=== PATIENT | female | born 1940 | race Two or more races ===

== ENCOUNTER 2017-09-26 23:31 | Inpatient (IN) | payer MEDICARE, MEDICAID ==
[~2017-09-26] VITALS: Ht 170.2 cm; Wt 62.6 kg
[~2017-09-26 23:31] MED LIST: ATOR10TA PO; DONE5TAB34 PO; FLUT16SP NS; GLIP10TA11 PO; LINA5TAB PO; LOSA50TA21 PO; LOVA20TA2 PO; METF10002 PO; METR500T PO; PANT40TA4 PO; PARO40TA PO; PIOG45TA PO
--- NOTE | 2017-09-26 23:35 | NUR ---
PT BIB RA TO ER BED 6, PT FAMILY PRESENT. DAUGHTER REPORTS PT HAS BEEN LETHARGIC AND NOT EATING MUCH OVER THE LAST FEW DAYS, ALSO STATES PT HAS BEEN CONFUSED. PT PLACED IN GOWN AND ON VS/SUPERVISOR LONG GOODS. VSS/RESP EVEN AND UNLABORED/NAD NOTED/SKIN WARM AND DRY.
[2017-09-27] VITALS (21 sets, daily range): BP systolic 118–173; BP diastolic 54–97
[2017-09-27] MEDS ORDERED: IV NS 0.9% 500 ML BAG IV ONE
--- NOTE | 2017-09-27 00:01 | NUR ---
20G IV TO L HAND USING ASEPTIC TECH, BLOOD CULTURES X 2 AND BLOOD SAMPLE GIVEN TO LAB AT BESIDE.
[2017-09-27 00:10] LABS: BASOPHILS # (AUTO) 0.2 /CMM (0.0-0.2); BASOPHILS % (AUTO) 0.9 % (0.0-2.0); EOSINOPHILS % (AUTO) 0.1 % (0.0-6.0); HEMATOCRIT 46 % (33-45); HEMOGLOBIN 15.3 g/dL (11.5-14.8); LYMPHOCYTES # (AUTO) 2.4 /CMM (0.8-4.8); LYMPHOCYTES % (AUTO) 9.6 % (20.0-44.0); MEAN CORPUSCULAR HEMOGLOBIN 31 PG (26.0-33.0); MEAN CORPUSCULAR HGB CONC 33 g/dl (31.0-36.0); MEAN CORPUSCULAR VOLUME 94 fL (82-100); MONOCYTES # (AUTO) 2.4 /CMM (0.1-1.30); MONOCYTES % (AUTO) 9.4 % (2.0-12.0); NEUTROPHILS # (AUTO) 20.1 /CMM (1.8-8.9); PLATELET COUNT (AUTO) 398 /CMM (150-450); RDW COEFFICIENT OF VARIATION 12.5 (11.5-15.0); RED BLOOD CELL COUNT(AUTO) 4.89 MIL/uL (4.0-5.2); WHITE BLOOD COUNT (AUTO) 25.1 K/uL (4.3-11.0)
--- NOTE | 2017-09-27 00:15 | NUR ---
URINE COLLECTED VIA IN AND OUT CATH USING TIN ROOFER PER MD ORDER. URINE COLLECTED AND SENT TO LAB.
[2017-09-27 00:26] LABS: INR 0.9 (0.87-1.13); PROTHROMBIN TIME 9.4 SECS (9.5-12.7)
--- NOTE | 2017-09-27 00:27 | NUR ---
PT TO CT.
[2017-09-27] MEDS ORDERED: INSULIN REGULAR, HUMAN 100 UNIT/ML 10 ML VIAL ONE ×2 (00:28→00:56)
[2017-09-27] MEDS ORDERED: INSULIN REGULAR, HUMAN 100 UNIT/ML 10 ML VIAL SQ ONE (00:30)
[2017-09-27 00:31] LABS: TROPONIN I < 0.017 ng/mL (0.00-0.056)
[2017-09-27 00:37] LABS: ALANINE AMINOTRANSFERASE 18 U/L (12-78); ALBUMIN 3.3 g/dL (3.4-5.0); ALKALINE PHOSPHATASE 116 U/L (46-116); ASPARTATE AMINOTRANSFERASE 23 U/L (15-37); B-TYPE NATRIURETIC PEPTIDE 438 PG/ML (0-125); BILIRUBIN,DIRECT 0.1 mg/dL (0.0-0.2); BILIRUBIN,TOTAL 0.7 mg/dL (0.2-1.0); CALCIUM, SERUM 10.5 mg/dL (8.5-10.1); CARBON DIOXIDE 16 mmol/L (21-32); CHLORIDE 95 mmol/L (98-107); CREATININE 1.3 mg/dL (0.6-1.3); POTASSIUM 4.8 mmol/L (3.5-5.1); SODIUM SERUM 131 mmol/L (136-145); TOTAL PROTEIN, SERUM 8.6 g/dL (6.4-8.2); UREA NITROGEN, BLOOD 28 mg/dL (7-18)
[2017-09-27 00:39] LABS: GLUCOSE 464 mg/dL (74-106)
--- NOTE | 2017-09-27 00:42 | NUR ---
Dona smith in EDM - 09/27/17 at 0050 by KAREN 20G IV TO L HAND USING ASEPTIC TECH, BLOOD CULTURES X 2 AND BLOOD SAMPLE GIVEN TO LAB AT BESIDE.
--- NOTE | 2017-09-27 00:50 | NUR ---
PT BACK FROM CT. NAD NOTED.
[2017-09-27 00:51] LABS: APPEARANCE,URINE SL CLOUDY (CLEAR); BILIRUBIN,URINE NEGATIVE (NEGATIVE); BLOOD, URINE 2+ Ery/uL (NEGATIVE); COLOR,URINE YELLOW (YELLOW); KETONES,URINE 3+ (NEGATIVE); LEUKOCYTE ESTERASE ,URINE 1+ (NEGATIVE); NITRITE, URINE POSITIVE (NEGATIVE); PROTEIN,URINE 1+ mg/dl (NEGATIVE); UGLUCOSE 3+ mg/dL (NEGATIVE); UROBILINOGEN,URINE 0.2 EU/dL (0.2)
[2017-09-27] MEDS ORDERED: INSULIN REGULAR, HUMAN 100 UNIT in IV NS 0.9% 99 ML IV PRN ×2 (01:00)
--- NOTE | 2017-09-27 01:06 | NUR ---
WITNESSED AND VERIFIED IV INSULIN DRIP @ 5UNITS/HR PER DR. KING ORDERS WITH EMORY CAUSEY.
[2017-09-27 01:13] LABS: BACTERIA,URINE 3+ /HPF (None Seen); SQUAMOUS EPITHELIAL CELL,UR Moderate /HPF (None Seen); WBC,URINE 81-100 /HPF (0-3)
[2017-09-27] MEDS ORDERED: ATOR20TA PO (01:22)
[2017-09-27] MEDS ORDERED: MIRT15TA7 PO (01:22)
[2017-09-27] MEDS ORDERED: CEFTRIAXONE 1GM BAG (ER ONLY) 1 GM/50 ML PIGGYBACK IV ONE (01:30)
--- NOTE | 2017-09-27 01:30 | NUR ---
Dona smith in ED - 09/27/17 at [address] KING SPEAKING TO PT/ FAMILY REGARDING RESULTS/ POC.
--- NOTE | 2017-09-27 01:30 | NUR ---
DR. KING SPEAKING TO PT/ FAMILY REGARDING RESULTS/ POC.
--- NOTE | 2017-09-27 01:37 | NUR ---
DR. ZHANG AT BEDSIDE SPEAKING WITH THE FAMILY.
[2017-09-27] MEDS ORDERED: CEFTRIAXONE 1GM BAG (ER ONLY) 50 ML IV ONE (01:40)
--- NOTE | 2017-09-27 01:40 | NUR ---
DR KING TALKING TO MD LATHAM
--- NOTE | 2017-09-27 01:47 | NUR ---
PT ADMIT TO ICU BED 259, REPORT GIVEN TO EMORY HERRERA.
--- NOTE | 2017-09-27 02:03 | NUR ---
PT TRANS TO ICU BED 259 PER ACLS PROTOCOL.
[2017-09-27] MEDS: BLOOD SUGAR DIAGNOSTIC 1 EACH STRIP IN SCH ×12 (02:11→22:16)
--- NOTE | 2017-09-27 02:30 | NUR ---
DISTRICT MANAGER IN TRAINING: RECEIVED PT FROM ER, NEW ADMITTED UNDER DR LATHAM, DX DKA, UTI, PT IS AAO X2-3, UNDERSTANDS LITTLE NIGERIAN. ON INSULIN DRIP RUNNING AT 5 UNITS/HR, FINGERSTICK BLOOD SUGAR 397 TITRATED DOWN TO 4 UNITS PER PROTOCOL. ALL ADMISSION ASSESSMENT DONE. SKIN IS INTACT CHECKED WITH REPLENISHMENT ASSOCIATE/ED. SR ON MONITOR. ON ROOM AIR SATURATING 96%, NO DISTRESS. LAC #20, LH #[address] LATHAM AT BEDSIDE, ENTERING ADMISSION ORDERS. WILL FOLLOW MD ORDERS.....
[2017-09-27] MEDS ORDERED: HYDROCODONE/APAP 5/325MG 1 EACH TABLET PO PRN (03:00)
[2017-09-27] MEDS ORDERED: ONDANSETRON HCL/PF 4 MG/2 ML VIAL IVP PRN (03:00)
[2017-09-27] MEDS ORDERED: BLOOD SUGAR DIAGNOSTIC 1 EACH STRIP IN SCH (03:00)
[2017-09-27] MEDS ORDERED: ACETAMINOPHEN 325 MG TABLET PO PRN (03:00)
[2017-09-27] MEDS ORDERED: IV NS 0.9% 1,000 ML BAG IV ONE (03:00)
[2017-09-27] MEDS ORDERED: Z GUARD REMEDY 2 OZ OINT TP PRN (03:00)
[2017-09-27] MEDS ORDERED: ZOLPIDEM TARTRATE 5 MG TABLET PO PRN (03:00)
[2017-09-27] MEDS ORDERED: MAG HYDROX/AL HYDROX/SIMETH 30 ML UDC PO PRN (03:00)
[2017-09-27] MEDS ORDERED: IV D5/0.45 NACL 1,000 ML IV SCH (03:00)
[2017-09-27] MEDS ORDERED: hydrALAZINE HCL IV 20 MG VIAL IV PRN (03:00)
[2017-09-27] MEDS ORDERED: MAGNESIUM HYDROXIDE 30 ML UDC PO PRN (03:00)
[2017-09-27] MEDS ORDERED: DEXTROSE 50%-WATER 50 ML DISP.SYRIN IV PRN ×2 (03:00→10:30)
[2017-09-27] MEDS ORDERED: IV D5/0.45 NACL 1,000 ML IV PRN (03:03)
--- NOTE | 2017-09-27 03:19 | NUR ---
CLIENT EVALUATOR: NS BOLUS ONGOING, ONCE ITS FINISH THEN WILL START NS AT 150 ML/HR PER MD ORDERS..
[2017-09-27] MEDS ORDERED: IV NS 0.9% 1,000 ML IV PRN (04:30)
[2017-09-27 05:42] LABS: CALCIUM, SERUM 9.2 mg/dL (8.5-10.1); CARBON DIOXIDE 22 mmol/L (21-32); CHLORIDE 105 mmol/L (98-107); CREATININE 1.1 mg/dL (0.6-1.3); GLUCOSE 266 mg/dL (74-106); PHOSPHORUS 1.9 mg/dL (2.5-4.9); POTASSIUM 3.1 mmol/L (3.5-5.1); SODIUM SERUM 137 mmol/L (136-145); UREA NITROGEN, BLOOD 25 mg/dL (7-18)
[2017-09-27 05:43] LABS: CHOLESTEROL 197 mg/dL (<200); HDL CHOLESTEROL 27 mg/dL (40-60); TRIGLYCERIDES 167 mg/dL (30-150)
[2017-09-27 05:44] LABS: LDL 131 mg/dL (0-99)
--- NOTE | 2017-09-27 07:00 | NUR ---
FRIT COATER- INITIAL NOTE RECEIVED PT A/O X3. ON ROOM AIR, NO SOB OR DISTRESS NOTED. BEDSIDE MONITOR REVEALS SINUS RHYTHM. LAC 20G RUNNING INSULIN GTT AT 2 UNITS/HR AND LEFT THUMB 20G RUNNING NS @ 150 ML/HR. PT REMAINS NPO. WILL CONTINUE TO MONITOR.
--- NOTE | 2017-09-27 07:08 | NUR ---
DIRECTOR CAREER SERVICES: REPORT GIVEN TO NATALI/EMORY, MADE AWARE ALL ORDERS. INSULIN DRIP TITRATED DOWN TO 1 UNITS/HR PER PROTOCOL, BS 238.
[2017-09-27] MEDS ORDERED: IV NS 0.9% 1,000 ML BAG IV SCH (09:00)
--- NOTE | 2017-09-27 09:45 | NUR ---
CONTINUOUS WELD PIPE MILL SUPERVISOR- DR. LOPEZ AT BEDSIDE. UPDATED PT ON PT'S CONDITION. NEW ORDERS OBTAINED: 1) STOP INSULIN GTT, 2) D/C CURRENT IVF AND START PT ON D5 NS @ 100 ML/HR, 3) PT CAN START EATING, DIABETIC DIET, 4) START AGGRESSIVE SLIDING SCALE ACHS, 5) LANTUS 20 UNITS SQ EVERY NIGHT AND 3) OK TO DOWNGRADE PT TO TELE. ALL ORDERS PLACED. WILL CONTINUE TO MONITOR.
[2017-09-27] MEDS: POTASSIUM CL. PREMIX PERIPHER. 50 ML IV SCH ×4 (10:25→13:31)
[2017-09-27] MEDS: IV D5/ 0.9% NACL 1,000 ML IV PRN (10:25)
[2017-09-27] MEDS ORDERED: K PHOS NEUTRAL 250 MG TABLET PO ONE (11:30)
[2017-09-27] MEDS: INSULIN REGULAR, HUMAN 100 UNIT/ML 3 ML VIAL SQ PRN ×3 (12:05→22:50)
--- NOTE | 2017-09-27 16:00 | NUR ---
UNDERGROUND MINE SUPERINTENDENT- COMPLETE BED BATH GIVEN TO PT. ALL LINENS CHANGED. PT TOLERATED WELL. WILL CONTINUE TO MONITOR.
--- NOTE | 2017-09-27 17:00 | NUR ---
JAVA FRONT END WEB DEVELOPER- REPORT GIVEN TO MARY ANN CAT IN [facility]. 1725- PT TRANSFERRED TO ROOM TELE ROOM 327-2. DAUGHTER AT BEDSIDE. PT HAD NO BELONGINGS.
--- NOTE | 2017-09-27 17:25 | NUR ---
RN NOTES: RECEIVED PATIENT FROM ICU. REPORT GIVEN BY NATALI. PATIENT STABLE. VITAL SIGNS WNL. NONLABORED BREATHING ON ROOM AIR. IV SITE ON LEFT AC PATENT AND INTACT. PATIENT AO X3 WITH PERIODS OF CONFUSION. PATIENT'S SKIN DRY AND INTACT. IV HYDRATION RESUMED. DAUGHTER BOWEN AT BED SIDE. BED IN LOWEST LOCKED POSITION.CALL LIGHT WITHIN REACH. BED ALARM ON. WILL CONTINUE TO MONITOR
--- NOTE | 2017-09-27 19:00 | NUR ---
RN CLOSING NOTES: PATIENT STABLE. NONLABORED BREATHING ON ROOM AIR. IV SITE ON LEFT AC PATENT AND INTACT. PATIENT AO X3 WITH PERIODS OF CONFUSION. PATIENT ATE SOME OF HER DINNER: 1 CUP OF PUDDING WELL SEVERAL PIECES OF MEAT. PATIENT KEPT CLEAN AND DRY. PATIENT ON TELEMETRY MONITORING. EARLIER, RHYTHM WAS SINUS WITH OCCASIONAL FIRST DEGREE HEART BLOCK. NOW NOTED TO BE SINUS RHYTHM WITH 91 HR. PATIENT ENCOURAGED TO USE CALL LIGHT.CALL LIGHT WITHIN REACH. BED ALARM ON. BED IN LOWEST LOCKED POSITION. WILL ENDORSE TO NEXT SHIFT
--- NOTE | 2017-09-27 20:00 | NUR ---
RN NOTES PATIENT IN BED, ALERT AND ORIENTED X1, SPEAKS LITTLE SERBIAN, WITH CONFUSION, 98%, NOT IN APPARENT PAIN, LUNG SOUNDS ARE CLEAR, ABDOMEN SOFT AND NON-TENDER, ACTIVE BOWEL SOUNDS, LEFT AC #20 PERIPHERAL LINE IS PATENT AND INFUSING WELL, ASSISTED TO TOILET, UNSTEADY GAIT, FALL RISK, BED ALARM TURNED ON. KEPT SAFE AND COMFORTABLE, CALL LIGHT WITHIN REACH.
[2017-09-27] MEDS: SIMVASTATIN 20 MG TABLET PO SCH (22:16)
[2017-09-27] MEDS: INSULIN DETEMIR 100 UNIT/ML CARTRIDGE SQ SCH (22:23)
[2017-09-28] VITALS: BP 147/76
[2017-09-28] MEDS: IV D5/ 0.9% NACL 1,000 ML IV PRN (00:25)
[2017-09-28] MEDS: CEFTRIAXONE 1 G in IV D5W 50 ML IV SCH (01:16)
[2017-09-28 04:00] VITALS: BP 146/72
[2017-09-28] MEDS: BLOOD SUGAR DIAGNOSTIC 1 EACH STRIP IN SCH ×4 (06:29→22:53)
[2017-09-28] MEDS: INSULIN REGULAR, HUMAN 100 UNIT/ML 3 ML VIAL SQ PRN ×3 (06:36→16:52)
--- NOTE | 2017-09-28 06:50 | NUR ---
RN NOTES PATIENT IS RESTING COMFORTABLY, AROUSEABLE BY TOUCH AND VOICE, NO SOB, NO RESPIRATORY DISTRESS, NO COMPLAIN OF PAIN, WITH EPISODE OF CONFUSION, LEFT AC PERIPHERAL LINE IS PATENT AND INFUSING WELL. ASSISTED TO BATHROOM, UNSTEADY GAIT, NEEDS ATTENDED, CALL LIGHT WITHIN REACH.
[2017-09-28 07:00] VITALS: BP 147/76
[2017-09-28 07:33] LABS: BASOPHILS # (AUTO) 0.1 /CMM (0.0-0.2); BASOPHILS % (AUTO) 0.5 % (0.0-2.0); EOSINOPHILS # (AUTO) 0.1 /CMM (0.0-0.7); EOSINOPHILS % (AUTO) 0.5 % (0.0-6.0); HEMATOCRIT 38 % (33-45); HEMOGLOBIN 12.8 g/dL (11.5-14.8); LYMPHOCYTES # (AUTO) 2.7 /CMM (0.8-4.8); LYMPHOCYTES % (AUTO) 16.4 % (20.0-44.0); MEAN CORPUSCULAR HEMOGLOBIN 32 PG (26.0-33.0); MEAN CORPUSCULAR HGB CONC 34 g/dl (31.0-36.0); MEAN CORPUSCULAR VOLUME 93 fL (82-100); MONOCYTES % (AUTO) 5.9 % (2.0-12.0); NEUTROPHILS # (AUTO) 12.8 /CMM (1.8-8.9); NEUTROPHILS % (AUTO) 76.7 % (43.0-81.0); PLATELET COUNT (AUTO) 309 /CMM (150-450); RDW COEFFICIENT OF VARIATION 12.6 (11.5-15.0); RED BLOOD CELL COUNT(AUTO) 4.05 MIL/uL (4.0-5.2); WHITE BLOOD COUNT (AUTO) 16.7 K/uL (4.3-11.0)
--- NOTE | 2017-09-28 07:41 | NUR ---
RN OPEN NOTES RECEIVED REPORT FROM SLOT ROUTER NURSE. WILL CONTINUE TO ASSESS AND MONITOR PATIENT THROUGH OUT MY SHIFT
[2017-09-28 07:48] LABS: CALCIUM, SERUM 8.6 mg/dL (8.5-10.1); CARBON DIOXIDE 21 mmol/L (21-32); CHLORIDE 108 mmol/L (98-107); CREATININE 0.8 mg/dL (0.6-1.3); GLUCOSE 186 mg/dL (74-106); MAGNESIUM 1.9 mg/dL (1.8-2.4); PHOSPHORUS 2.1 mg/dL (2.5-4.9); SODIUM SERUM 140 mmol/L (136-145); UREA NITROGEN, BLOOD 14 mg/dL (7-18)
[2017-09-28 07:59] LABS: POTASSIUM 2.7 mmol/L (3.5-5.1)
--- NOTE | 2017-09-28 08:00 | NUR ---
CRITICAL VALUE REPORTED BY LAB
--- NOTE | 2017-09-28 08:09 | NUR ---
DR YAMEL NJ REGARDING CRITICAL LAB VALUE OF POTASSIUM 2.7
--- NOTE | 2017-09-28 08:20 | NUR ---
SHANIQUA NJ REGARDING CRITICAL LAB VALUE POTASSIUM LEVEL OF 2.7
[2017-09-28] MEDS ORDERED: POTASSIUM CHLORIDE 20 MEQ TAB.PRT.SR PO ONE (09:00)
--- NOTE | 2017-09-28 12:40 | NUR ---
IV INFILTRATE. REMOVED IV. APPLIED ICE, ELEVATED ARM. WILL ATTEMPT TO START A NEW IV SITE
--- NOTE | 2017-09-28 14:00 | NUR ---
NEW IV STARTED. 22 G ON THE RIGHT FOREARM
--- NOTE | 2017-09-28 18:15 | NUR ---
IV INFILTRATE. IV REMOVED.
--- NOTE | 2017-09-28 18:30 | NUR ---
CALLED ICU TO START AND IV. AN RN WILL COME WHEN AVAILABLE
--- NOTE | 2017-09-28 18:54 | NUR ---
RN CLOSING NOTES PATIENT IS ALERT AND ORIENTED TO NAME, PLACE. PATIENT IS IN BED. ALL NURSING CARE ANTICIPATED AND PROVIDED. NO SIGNS AND SYMPTOMS OF DISTRESS. DENIED PAIN. BREATHING IS EVEN AND UNLABORED. NO IV SITE; ICU WILL ATTEMPT TO START AND IV WHEN AVAILABLE. BED IN LOW POSITION, LOCKED AND TWO SIDE RAILS ARE UP. CALL LIGHT WITHIN REACH. WILL ENDORSE TO STEEL FITTER NURSE.
--- NOTE | 2017-09-28 19:30 | NUR ---
PATIENT'S DAUGHTER AT BEDSIDE REPORTED THAT PATIENT HAS ALERGY REACTION TO IODINE AND ANCEF. ALLERGY NOTED AND DOCUMENTED
[2017-09-28 20:04] VITALS: BP 133/73
[2017-09-28] MEDS: INSULIN DETEMIR 100 UNIT/ML CARTRIDGE SQ SCH (22:56)
[2017-09-28] MEDS: SIMVASTATIN 20 MG TABLET PO SCH (22:57)
[2017-09-29] MEDS: CEFTRIAXONE 1 G in IV D5W 50 ML IV SCH (00:14)
[2017-09-29 06:49] LABS: BASOPHILS % (AUTO) 0.2 % (0.0-2.0); EOSINOPHILS # (AUTO) 0.1 /CMM (0.0-0.7); EOSINOPHILS % (AUTO) 0.8 % (0.0-6.0); HEMATOCRIT 41 % (33-45); LYMPHOCYTES # (AUTO) 3.2 /CMM (0.8-4.8); MEAN CORPUSCULAR HEMOGLOBIN 32 PG (26.0-33.0); MEAN CORPUSCULAR HGB CONC 35 g/dl (31.0-36.0); MEAN CORPUSCULAR VOLUME 93 fL (82-100); MONOCYTES # (AUTO) 1.1 /CMM (0.1-1.30); MONOCYTES % (AUTO) 7.3 % (2.0-12.0); NEUTROPHILS # (AUTO) 10.7 /CMM (1.8-8.9); NEUTROPHILS % (AUTO) 70.7 % (43.0-81.0); PLATELET COUNT (AUTO) 344 /CMM (150-450); RDW COEFFICIENT OF VARIATION 12.4 (11.5-15.0); RED BLOOD CELL COUNT(AUTO) 4.38 MIL/uL (4.0-5.2); WHITE BLOOD COUNT (AUTO) 15.2 K/uL (4.3-11.0)
--- NOTE | 2017-09-29 07:20 | NUR ---
MS RN initial notes Received pt in bed, asleep, on room air, no SOB noted, no apparent distress noted. On IV D5 NS at 100ml/hr, intact, patent. Kept clean and comfortable, call light within reach. Will continue to monitor accordingly.
[2017-09-29 07:22] LABS: CALCIUM, SERUM 8.8 mg/dL (8.5-10.1); CARBON DIOXIDE 23 mmol/L (21-32); CHLORIDE 106 mmol/L (98-107); CREATININE 0.8 mg/dL (0.6-1.3); GLUCOSE 138 mg/dL (74-106); MAGNESIUM 1.8 mg/dL (1.8-2.4); PHOSPHORUS 2.1 mg/dL (2.5-4.9); SODIUM SERUM 140 mmol/L (136-145); UREA NITROGEN, BLOOD 8 mg/dL (7-18)
[2017-09-29 07:47] LABS: POTASSIUM 2.8 mmol/L (3.5-5.1)
[2017-09-29 08:00] VITALS: BP 128/61
[2017-09-29] MEDS: BLOOD SUGAR DIAGNOSTIC 1 EACH STRIP IN SCH ×4 (08:17→22:03)
[2017-09-29] MEDS: INSULIN REGULAR, HUMAN 100 UNIT/ML 3 ML VIAL SQ PRN ×3 (08:17→17:07)
--- NOTE | 2017-09-29 08:17 | NUR ---
ms rn notes blood sugar checked 127 no coverage given. will continue to monitor accordingly.
[2017-09-29] MEDS ORDERED: POTASSIUM CHLORIDE 20 MEQ TAB.PRT.SR PO ONE (10:00)
[2017-09-29] MEDS: PAROXETINE HCL 20 MG TABLET PO SCH (11:27)
[2017-09-29] MEDS: MIRTAZAPINE 15 MG TABLET PO SCH ×2 (11:28→16:48)
[2017-09-29] MEDS ORDERED: K PHOS NEUTRAL 250 MG TABLET PO ONE (15:30)
[2017-09-29 16:00] VITALS: BP_SYST 140; BP_SYST 155; BP_DIAS 78; BP_DIAS 95
--- NOTE | 2017-09-29 19:23 | NUR ---
ms rn closing notes All needs provided, attended, and anticipated. kept patient clean and comfortable in bed, call light with in reach, endorsed to next shift RN to continue care.
[2017-09-29 20:00] VITALS: BP 158/94
--- NOTE | 2017-09-29 20:00 | NUR ---
MS/RN RECEIVE PATIENT APPEAR SLEEPING, AROUSABLE, APPEAR COMFORTABLE, BREATHING EVEN AND UNLABORED, CALL LIGHT IN REACH. WILL MONITOR.
[2017-09-29] MEDS: *INSULIN REGULAR(HUMULIN R)HUM 100 UNIT/ML VIAL SQ PRN (21:56)
[2017-09-29] MEDS: INSULIN DETEMIR 100 UNIT/ML CARTRIDGE SQ SCH (21:57)
--- NOTE | 2017-09-29 22:00 | NUR ---
MS/RN ACCU CHECK BLOOD SUGAR= 131, INSULIN GIVEN PER SLIDING SCALE, LANTUS 20 UNITS SC WAS GIVEN. SNACK GIVEN. WILL MONITOR.
[2017-09-29] MEDS: SIMVASTATIN 20 MG TABLET PO SCH (22:02)
--- NOTE | 2017-09-29 23:28 | NUR ---
MS/RN PATIENT IS SLEEPING AT THIS TIME, AROUSABLE, APPEAR COMFORTABLE, NO DISTRESS NOTED, CALL LIGHT IN REACH. WILL CONTINUE TO MONITOR.
[2017-09-30] MEDS: CEFTRIAXONE 1 G in IV D5W 50 ML IV SCH (01:33)
[2017-09-30] MEDS: INSULIN REGULAR, HUMAN 100 UNIT/ML 3 ML VIAL SQ PRN ×3 (06:28→17:09)
[2017-09-30] MEDS: BLOOD SUGAR DIAGNOSTIC 1 EACH STRIP IN SCH ×4 (06:33→21:46)
--- NOTE | 2017-09-30 06:38 | NUR ---
MS/RN PATIENT AWAKE, ALERT, ORIENTED, COMFORTABLE, ACCU CHECK BLOOD SUGAR = 186, COVERED WITH INSULIN PER SLIDING SCALE, ALL NEEDS ATTENDED AT THIS TIME. WILL CONTINUE TO MONITOR.
--- NOTE | 2017-09-30 07:10 | NUR ---
MS RN Initial notes Received pt awake, verbally responsive, on room air, no SOB noted,no apparent distress noted.Will continue to monitor accordingly. Kept clean and comfortable, call light in reach
[2017-09-30 07:17] LABS: BASOPHILS # (AUTO) 0.1 /CMM (0.0-0.2); EOSINOPHILS # (AUTO) 0.1 /CMM (0.0-0.7); EOSINOPHILS % (AUTO) 0.9 % (0.0-6.0); HEMATOCRIT 42 % (33-45); HEMOGLOBIN 14.3 g/dL (11.5-14.8); MEAN CORPUSCULAR HEMOGLOBIN 32 PG (26.0-33.0); MEAN CORPUSCULAR HGB CONC 34 g/dl (31.0-36.0); MEAN CORPUSCULAR VOLUME 93 fL (82-100); MONOCYTES % (AUTO) 7.7 % (2.0-12.0); NEUTROPHILS # (AUTO) 8.3 /CMM (1.8-8.9); NEUTROPHILS % (AUTO) 66.4 % (43.0-81.0); PLATELET COUNT (AUTO) 353 /CMM (150-450); RDW COEFFICIENT OF VARIATION 12.2 (11.5-15.0); RED BLOOD CELL COUNT(AUTO) 4.49 MIL/uL (4.0-5.2); WHITE BLOOD COUNT (AUTO) 12.5 K/uL (4.3-11.0)
[2017-09-30 07:25] LABS: CALCIUM, SERUM 9.3 mg/dL (8.5-10.1); CARBON DIOXIDE 26 mmol/L (21-32); CHLORIDE 106 mmol/L (98-107); CREATININE 0.7 mg/dL (0.6-1.3); GLUCOSE 188 mg/dL (74-106); MAGNESIUM 1.9 mg/dL (1.8-2.4); PHOSPHORUS 3.4 mg/dL (2.5-4.9); POTASSIUM 3.2 mmol/L (3.5-5.1); SODIUM SERUM 141 mmol/L (136-145); UREA NITROGEN, BLOOD 9 mg/dL (7-18)
[2017-09-30 08:00] VITALS: BP 145/65
[2017-09-30] MEDS: MIRTAZAPINE 15 MG TABLET PO SCH ×2 (08:23→16:57)
[2017-09-30] MEDS: PAROXETINE HCL 20 MG TABLET PO SCH (08:24)
[2017-09-30] MEDS: PIOGLITAZONE HCL 15 MG TABLET PO SCH (08:27)
[2017-09-30] MEDS ORDERED: Medication Not On Formulary EA (Atorvastatin Calcium (Lipitor) 1 TAB) PO SCH (09:00)
[2017-09-30] MEDS: LINAGLIPTIN 5 MG TABLET PO SCH (10:40)
[2017-09-30] MEDS: ATORVASTATIN 10 MG TABLET PO SCH (10:40)
[2017-09-30] MEDS: POTASSIUM CHLORIDE 20 MEQ TAB.PRT.SR PO SCH ×2 (13:30→17:11)
[2017-09-30 16:00] VITALS: BP 137/67
--- NOTE | 2017-09-30 19:14 | NUR ---
ms rn closing notes All needs provided, attended, and anticipated. Kept patient clean and comfortable in bed, call light with in patient reach, endorsed to next shift RN to continue care.
--- NOTE | 2017-09-30 19:30 | NUR ---
MS RN NOTE RECEIVED PATIENT FROM DAY SHIFT, PATIENT IS ALERT AND ORIENTEDX1, NO S/S OF RESPIRATORY DISTRESS OR PAIN AT THIS TIME, RESTING IN BED COMFORTABLY. NO IV SITE NOTED WILL TRY TO INSERT THE NEW ONE. SRX2, BED IN LOW POSITION, CALL LIGHT WITHIN REACH, WILL CONTINUE TO MONITOR PATIENT.
[2017-09-30 20:00] VITALS: BP 136/73
[2017-09-30] MEDS: SIMVASTATIN 20 MG TABLET PO SCH (21:45)
[2017-09-30] MEDS: INSULIN DETEMIR 100 UNIT/ML CARTRIDGE SQ SCH (21:48)
[2017-09-30] MEDS: *INSULIN REGULAR(HUMULIN R)HUM 100 UNIT/ML VIAL SQ PRN (21:49)
[2017-10-01] MEDS: CEFTRIAXONE 1 G in IV D5W 50 ML IV SCH (00:36)
[2017-10-01] MEDS: INSULIN REGULAR, HUMAN 100 UNIT/ML 3 ML VIAL SQ PRN ×3 (06:11→18:32)
[2017-10-01] MEDS: BLOOD SUGAR DIAGNOSTIC 1 EACH STRIP IN SCH ×4 (06:11→21:20)
--- NOTE | 2017-10-01 06:48 | NUR ---
MS RN NOTE PATIENT IS RESTING IN BED COMFORTABLY, NO ACUTE EVENT NOTED THROUGHOUT THE SHIFT. IV ON RIGHT WRIST IS PATENT AND INTACT, HL ONLY. NO S/S OF RESPIRATORY DISTRESS AND NO FACIAL GRIMACE NOTED. WILL ENDORSE TO DAY SHIFT NURSE FOR JOSE.
--- NOTE | 2017-10-01 07:40 | NUR ---
MS RN INITIAL NOTES RECEIVED PT IN BED, ASLEEP, ON ROOM AIR, NO SOB NOTED.NO S/SX OF PAIN OR DISCOMFORT NOTED.IV SITE RT WRIST INTACT, PATENT. KEPT CLEAN AND COMFORTABLE.CALL LIGHT WITHIN REACH.WILL CONTINUE TO MONITOR ACCORDINGLY
[2017-10-01 07:44] LABS: CALCIUM, SERUM 8.9 mg/dL (8.5-10.1); CARBON DIOXIDE 25 mmol/L (21-32); CHLORIDE 106 mmol/L (98-107); CREATININE 0.8 mg/dL (0.6-1.3); GLUCOSE 150 mg/dL (74-106); POTASSIUM 3.6 mmol/L (3.5-5.1); SODIUM SERUM 141 mmol/L (136-145); UREA NITROGEN, BLOOD 13 mg/dL (7-18)
[2017-10-01 08:00] VITALS: BP 132/72
[2017-10-01] MEDS: LINAGLIPTIN 5 MG TABLET PO SCH (08:37)
[2017-10-01] MEDS: PAROXETINE HCL 20 MG TABLET PO SCH (08:37)
[2017-10-01] MEDS: ATORVASTATIN 10 MG TABLET PO SCH (08:37)
[2017-10-01] MEDS: MIRTAZAPINE 15 MG TABLET PO SCH ×2 (08:37→16:43)
[2017-10-01] MEDS: PIOGLITAZONE HCL 15 MG TABLET PO SCH (08:38)
[2017-10-01 16:00] VITALS: BP 127/67
--- NOTE | 2017-10-01 18:26 | NUR ---
MS RN Closing notes Pt in bed, alert,awake,verbally responsive. On room air, no SOB noted,no apparent distress noted.Kept clean and comfortable.Will monitor accordingly
--- NOTE | 2017-10-01 19:30 | NUR ---
MS RAINER INITIAL NOTES RECEIVED REPORT FROM AM NURSE AND CHECKED THE PATIENT, SEEN PT JUST CAME OUT FROM THE BATHROOM , DENIES ANY PAIN OR ANY DISCOMFORT RE-ORIENTED WHERE SHE AT , SPEAK CROATIAN BUT UNDERSTOOD SOME FRISIAN. KEPT HER WARM AND COMFORTABLE AT ALL TIMES. PLACE CALL LIGHT AT REACH. WILL CONTINUE TO MONITOR.
[2017-10-01 20:00] VITALS: BP 128/76
[2017-10-01 20:29] VITALS: BP 128/76
[2017-10-01] MEDS: INSULIN DETEMIR 100 UNIT/ML CARTRIDGE SQ SCH (21:21)
[2017-10-01] MEDS: SIMVASTATIN 20 MG TABLET PO SCH (21:21)
[2017-10-01] MEDS: *INSULIN REGULAR(HUMULIN R)HUM 100 UNIT/ML VIAL SQ PRN (21:23)
--- NOTE | 2017-10-01 21:34 | NUR ---
MS RAINER NOTES BLOOD SUGAR 187, 20 UNITS OF LEVEMIR GIVEN WELL 3 UNITS OF INSULIN. SNACKS ALSO SERVED. NO SIGNS OF HYPER GLYCEMIA NOTED. KEPT HER WARM AND COMFORTABLE AT ALL TIMES. WILL CONTINUE TO MONITOR. PLACE CALL LIGHT AT REACH.
[2017-10-02] MEDS: CEFTRIAXONE 1 G in IV D5W 50 ML IV SCH (01:11)
[2017-10-02] MEDS: BLOOD SUGAR DIAGNOSTIC 1 EACH STRIP IN SCH ×4 (06:06→21:36)
[2017-10-02] MEDS: INSULIN REGULAR, HUMAN 100 UNIT/ML 3 ML VIAL SQ PRN ×3 (06:09→16:50)
--- NOTE | 2017-10-02 07:00 | NUR ---
MS SALVAGE WINDER CLOSING NOTES' CHECKED PT SLEEPING COMFORTABLY IN BED BUT AROUSES TO TOUCH, BLOOD SUGAR CHECKED DONE 213, 8 UNITS OF INSULIN GIVEN ORDERED. SLEPT WELL NO SIGNS OF ANY ACUTE DISTRESS NOTED. STABLE STEFAN THE NIGHT . MORNING CARE ALSO DONE AND ALL NEEDS MET. HEPLOCK STILL ON HER RIGHT THUMB.PATENT AND INTACT. KEPT HER WARM AND COMFORTABLE AT ALL TIMES. BED ALARM SET FOR SAFETY. PLACE CALL LIGHT AT REACH. WILL ENDORSE TO AM NURSE FOR CONTINUITY OF CARE.
--- NOTE | 2017-10-02 07:44 | NUR ---
RN OPEN NOTES RECEIVED REPORT FROM CEMENTER HAND NURSE. PATIENT IS ALERT AND ORIENTED TO NAME ONLY. PATIENT CONFUSED AND UNABLE TO SAY PLACE AND TIME. POSSIBLE DC IN AM TO [place] [facility] OR HOME - NEED TO FOLLOW UP WITH CASE MANAGEMENT AND DAUGHTER. WILL CONTINUE TO ASSESS AND MONITOR PATIENT THROUGHOUT MY SHIFT
[2017-10-02 08:00] VITALS: BP 127/73
[2017-10-02] MEDS: PAROXETINE HCL 20 MG TABLET PO SCH (08:06)
[2017-10-02] MEDS: PIOGLITAZONE HCL 15 MG TABLET PO SCH (08:06)
[2017-10-02] MEDS: MIRTAZAPINE 15 MG TABLET PO SCH ×2 (08:06→16:46)
[2017-10-02] MEDS: LINAGLIPTIN 5 MG TABLET PO SCH (08:06)
[2017-10-02] MEDS: ATORVASTATIN 10 MG TABLET PO SCH (08:06)
[2017-10-02] MEDS ORDERED: INSU100I19 SQ (15:50)
[2017-10-02] MEDS ORDERED: INSU100V28 SQ (15:50)
[2017-10-02] MEDS ORDERED: CEFT1VIA15 IV (15:50)
[2017-10-02 16:00] VITALS: BP 129/56
--- NOTE | 2017-10-02 17:50 | NUR ---
PER CASE MANAGEMENT - HOLD DISCHARGE, PENDING PLACEMENT.
--- NOTE | 2017-10-02 18:33 | NUR ---
RN CLOSING NOTES PATIENT IS IN BED, ALERT AND ORIENTED TO NAME ONLY. UNABLE TO COMPREHEND AND VERBALIZE UNDERSTANDING. NO SIGNS AND SYMPTOMS OF DISTRESS OR PAIN. ALL NURSING CARE ANTICIPATED AND ATTENDED. IV SITE IS INTACT AND PATENT. SKIN IS INTACT. BED IN LOW POSITION, LOCKED AND TWO SIDE RAILS ARE UP. CALL LIGHTS WITHIN REACH. DC PLANING TOMORROW IN AM. WILL ENDORSE TO INTERLACER RN FOR JOSE.
--- NOTE | 2017-10-02 19:45 | NUR ---
RN OPENING NOTES RECEIVED REPORT FROM DAYSHIFT RN, MICHAEL. FOUND Pt AWAKE, RESTING IN BED. NO S/S OF ACUTE DISTRESS OR SOB NOTED. Pt IS A/OX1, FANG SPEAKING, UNDERSTANDS TAMAZIGHT. IV ACCESS ON R THUMB #22G, SL. SAFETY MEASURES IN PLACE. BED LOW, LOCKED, HOB ELEVATED, SIDE RAILS UP, CALL LIGHT AND BEDSIDE TABLE WITHIN REACH. WILL CONTINUE TO MONITOR Pt THROUGHOUT THE NIGHT FOR SAFETY.
[2017-10-02 20:00] VITALS: BP 118/60
[2017-10-02] MEDS: SIMVASTATIN 20 MG TABLET PO SCH (21:36)
[2017-10-02] MEDS: INSULIN DETEMIR 100 UNIT/ML CARTRIDGE SQ SCH (21:41)
[2017-10-02] MEDS: *INSULIN REGULAR(HUMULIN R)HUM 100 UNIT/ML VIAL SQ PRN (21:44)
--- NOTE | 2017-10-02 21:52 | NUR ---
RN NOTES HS BG 279. ADMINISTERED SCHEDULED LEVEMIR 20UN AND 6UN OF INSULIN PER SLIDING SCALE. WILL CONTINUE TO MONITOR Pt's BG LEVELS.
--- NOTE | 2017-10-02 21:53 | NUR ---
RN NOTES NOTICED THAT Pt HAS NO IV ACCESS AT THE MOMENT DUE TO PRIOR DISCHARGE, BUT NOW THAT THERE IS A HOLD ON Pt's DISCHARGE TO FIND HER A NEW PLACEMENT Pt IS STAYING IN [facility] FOR 1 MORE NIGHT. BUT Pt IS REFUSING NEW IV ACCESS AT THIS TIME.
[2017-10-03] MEDS: CEFTRIAXONE 1 G in IV D5W 50 ML IV SCH (00:19)
--- NOTE | 2017-10-03 06:30 | NUR ---
RN NOTES AC BG 181. ADMINISTERED 4UN OF INSULIN PER SLIDING SCALE.
[2017-10-03] MEDS: BLOOD SUGAR DIAGNOSTIC 1 EACH STRIP IN SCH ×3 (06:32→17:09)
[2017-10-03] MEDS: INSULIN REGULAR, HUMAN 100 UNIT/ML 3 ML VIAL SQ PRN ×3 (06:35→17:11)
--- NOTE | 2017-10-03 06:49 | NUR ---
RN CLOSING NOTES NO SIGNIFICANT CHANGES IN Pt's CONDITION. Pt REMAINS STABLE. NO S/S OF ACUTE DISTRESS OR SOB NOTED DURING THE NIGHT. ALL NEEDS MET AND ATTENDED TO. SAFETY MEASURES IN PLACE. WILL ENDORSE TO DAYSHIFT RN FOR Pt's JOES. POSSIBLE D/C TODAY.
--- NOTE | 2017-10-03 07:30 | NUR ---
m/s operations scheduler: initial assessment received pt in bed awake, alert and oriented x 2; speaks kali with little niuean. pt able to make simple needs known. denies pain or any discomfort. pt able to ambulate using fww. for d'c planning. instructed to call for assistance. will continue to monitor.
[2017-10-03 08:00] VITALS: BP 128/70
--- NOTE | 2017-10-03 10:00 | NUR ---
m/s career placement services counselor: notes resting comfortable in bed with no distress noted. will continue to monitor.
[2017-10-03] MEDS: LINAGLIPTIN 5 MG TABLET PO SCH (10:07)
[2017-10-03] MEDS: PIOGLITAZONE HCL 15 MG TABLET PO SCH (10:07)
[2017-10-03] MEDS: ATORVASTATIN 10 MG TABLET PO SCH (10:07)
[2017-10-03] MEDS: MIRTAZAPINE 15 MG TABLET PO SCH ×2 (10:07→17:14)
[2017-10-03] MEDS: PAROXETINE HCL 20 MG TABLET PO SCH (10:07)
[2017-10-03] MEDS ORDERED: CEPHALEXIN MONOHYDRATE 500 MG CAPSULE PO SCH (10:30)
--- NOTE | 2017-10-03 14:40 | NUR ---
m/s individual small group instructor: notes debby (case management) here and informed that family finally agreed to take her back to [facility]. cn aware. eta at 1600. pt made aware.
--- NOTE | 2017-10-03 15:27 | NUR ---
m/s director biology: notes [facility] notified, spoke to will (rn) for continuity of care.
--- NOTE | 2017-10-03 15:50 | NUR ---
m/s major gifts director: notes daughter here with her 2 children and aware that pt is leaving at 1700 to [facility]. will continue to monitor.
[2017-10-03 16:00] VITALS: BP 114/61
--- NOTE | 2017-10-03 17:00 | NUR ---
m/s climate change risk assessor: notes dinner served with hob elevated. awaiting for ambulance to garbage pick up worker pt. pt aware. will continue to monitor.
--- NOTE | 2017-10-03 18:07 | NUR ---
m/s doctor assistant: notes ambulance here and report given to one of the crew. pt has no iv line. pt stable for discharge. all d'c papers given to ambulance. will continue to monitor.
--- NOTE | 2017-10-03 18:13 | NUR ---
m/s medart operator: discharged discharged to snf in stable condition with all d'c papers via ambulance.
== END 2017-10-03 18:15 | DRG 720 ==
LOC: ER 23:32 → TELE 09-27 00:21 → UNDOADMIN 09-27 00:21 → ICU 09-27 01:15 → TELE 09-27 17:20 → MED 09-28 09:01
PROVIDERS: ADMIT Family Medicine; ATTEND Family Medicine
DX: A41.9 Sepsis, unspecified organism (principal); N17.0 Acute kidney failure with tubular necrosis; E43 Unspecified severe protein-calorie malnutrition; I11.0 Hypertensive heart disease with heart failure; E11.10 Type 2 diabetes mellitus with ketoacidosis without coma; J18.9 Pneumonia, unspecified organism; I50.32 Chronic diastolic (congestive) heart failure; N39.0 Urinary tract infection, site not specified; F03.90 Unspecified dementia, unspecified severity, without behavioral disturbance, psychotic disturbance, mood disturbance, and anxiety; Z85.72 Personal history of non-Hodgkin lymphomas; Z79.899 Other long term (current) drug therapy; Z79.84 Long term (current) use of oral hypoglycemic drugs; E87.1 Hypo-osmolality and hyponatremia; E87.6 Hypokalemia; E78.5 Hyperlipidemia, unspecified; B96.20 Unspecified Escherichia coli [E. coli] as the cause of diseases classified elsewhere; E44.1 Mild protein-calorie malnutrition
CPT/HCPCS: 36415; 70450-TC; 71010-TC; 80048-TC; 80061-TC; 80076-TC; 81000-TC; 82962-TC; 83605-TC; 83735-TC; 83880; 84100-TC; 84484-TC; 85025-TC; 85730-TC; 87040-TC; 87081-TC; 87086-TC; 87186-TC; 93307-TC; A4606; J0696; J1815; J3480; J7030; J7040; J7042; J7060; Z7610

== ENCOUNTER 2018-01-23 20:48 | Inpatient (IN) | payer MEDICAID, MEDICARE ==
[~2018-01-23] VITALS: Ht 157.5 cm; Wt 65.3 kg
[~2018-01-23 20:48] MED LIST changes: +CEFT1VIA15 IV; -DONE5TAB34 PO; -FLUT16SP NS; -GLIP10TA11 PO; +INSU100I19 SQ; +INSU100V28 SQ; -LOSA50TA21 PO; -LOVA20TA2 PO; -METF10002 PO; -METR500T PO; +MIRT15TA7 PO; -PANT40TA4 PO; -PIOG45TA PO; +PIOG45TA5 PO
--- NOTE | 2018-01-23 21:05 | NUR ---
TO BED 4 BIB PARAMEDICS C/O MORE ALTERED THAN NORMAL. PT AAOX2 NO ACUTE DISTRESS NOTED, RESP EVEN AND UNLABORED. PLACE PT ON CARDIAC MONITORING, CONTINUOUS POX. ER MD AT BEDSIDE TO EVAL PT WITH ORDERS RECEIVED. WILL CARRY OUT ORDERS.
--- NOTE | 2018-01-23 21:15 | NUR ---
STARTED SL 18G TO LAC, BLOOD DRAWN AND SENT TO LAB.
[2018-01-23 21:27] LABS: BASOPHILS # (AUTO) 0.3 /CMM (0.0-0.2); BASOPHILS % (AUTO) 1.7 % (0.0-2.0); EOSINOPHILS % (AUTO) 0.1 % (0.0-6.0); HEMATOCRIT 38 % (33-45); HEMOGLOBIN 13.2 g/dL (11.5-14.8); LYMPHOCYTES % (AUTO) 16.3 % (20.0-44.0); MEAN CORPUSCULAR HEMOGLOBIN 32 PG (26.0-33.0); MEAN CORPUSCULAR HGB CONC 35 g/dl (31.0-36.0); MEAN CORPUSCULAR VOLUME 92 fL (82-100); MONOCYTES # (AUTO) 1.8 /CMM (0.1-1.30); NEUTROPHILS # (AUTO) 13.3 /CMM (1.8-8.9); NEUTROPHILS % (AUTO) 71.9 % (43.0-81.0); PLATELET COUNT (AUTO) 197 /CMM (150-450); RDW COEFFICIENT OF VARIATION 11.8 (11.5-15.0); RED BLOOD CELL COUNT(AUTO) 4.12 MIL/uL (4.0-5.2); WHITE BLOOD COUNT (AUTO) 18.4 K/uL (4.3-11.0)
[2018-01-23 21:40] LABS: CALCIUM, SERUM 9.2 mg/dL (8.5-10.1); CARBON DIOXIDE 27 mmol/L (21-32); CHLORIDE 97 mmol/L (98-107); CREATININE 1.2 mg/dL (0.6-1.3); GLUCOSE 249 mg/dL (74-106); POTASSIUM 3.4 mmol/L (3.5-5.1); SODIUM SERUM 136 mmol/L (136-145); UREA NITROGEN, BLOOD 20 mg/dL (7-18)
[2018-01-23 21:41] LABS: INR 1.01 (0.85-1.15)
[2018-01-23 21:45] LABS: ALANINE AMINOTRANSFERASE 14 U/L (12-78); ALBUMIN 3.8 g/dL (3.4-5.0); ALKALINE PHOSPHATASE 54 U/L (46-116); ASPARTATE AMINOTRANSFERASE 16 U/L (15-37); BILIRUBIN,DIRECT 0.3 mg/dL (0.0-0.2); BILIRUBIN,TOTAL 1.2 mg/dL (0.2-1.0); TROPONIN I < 0.017 ng/mL (0.00-0.056)
--- NOTE | 2018-01-23 22:47 | NUR ---
TONNY LE SPOKE TO PT DAUGHTER REAGRDING I&O CATH, PT DAUGHTER OK WITH I&O CATH LONG A FEMALE NURSE DOES IT.
[2018-01-23 23:15] LABS: APPEARANCE,URINE CLOUDY (CLEAR); BILIRUBIN,URINE NEGATIVE (NEGATIVE); BLOOD, URINE 1+ Ery/uL (NEGATIVE); COLOR,URINE YELLOW (YELLOW); KETONES,URINE 1+ (NEGATIVE); LEUKOCYTE ESTERASE ,URINE NEGATIVE (NEGATIVE); NITRITE, URINE NEGATIVE (NEGATIVE); PH,URINE 6.5 (5.0-8.0); PROTEIN,URINE 2+ mg/dl (NEGATIVE); UGLUCOSE 2+ mg/dL (NEGATIVE)
[2018-01-23 23:21] LABS: BACTERIA,URINE Many /HPF (None Seen); SQUAMOUS EPITHELIAL CELL,UR Few /HPF (None Seen); WBC,URINE 21-50 /HPF (0-3)
--- NOTE | 2018-01-23 23:36 | NUR ---
ER MD SPOKE TO DR. YAMEL GALAN REGARDING PT ADMISSION. REPORT CALLED TO WOOD ROUTEREMORY AUGUSTIN. WILL TRANSPORT PT VIA ACLS PROTOCOL.
[2018-01-23] MEDS ORDERED: LEVOFLOXACIN 750 MG /D5W 150ML 150 ML IV ONE (23:40)
[2018-01-23] MEDS: LEVOFLOXACIN 750 MG /D5W 150ML PIGGYBACK IV ONE (23:45)
--- NOTE | 2018-01-24 | NUR ---
FINANCIAL SERVICES AUDITOR OPENING NOTES RECEIVED PATIENT FROM EMERGENCY DEPARTMENT, REPORT GIVEN BY ED. ADMITTED WITH UTI AND ALTERED LOC. PATIENT ASLEEP, AROUSED TO LIGHT TOUCH, DISORIENTED TO NAME, TIME AND PLACE. PATIENT IS ACCOMPANIED BY THE DAUGHTER. ON 2 L OXYGEN VIA NC. NO APPARENT DISTRESS OR DISCOMFORT NOTED AT THIS TIME. RESPIRATIONS EVEN AND UNLABORED. LEFT AC HL, WITH ANTIBIOTICS RUNNING AT THE TIME OF TRANSFER. VITAL SIGNS TAKEN AND RECORDED. LINEN CHANGED. PATIENT MADE COMFORTABLE IN BED. SAFETY MEASURES IN PLACE, BED IN LOW LOCKED POSITION, SIDE RAILS UP X2, ALARM ON. CALL LIGHT WITHIN EASY REACH. WILL ADMIT TO TELEMETRY UNIT PER ORDER AND CONTINUE TO MONITOR.
[2018-01-24 01:00] VITALS: BP 135/70
[2018-01-24] MEDS ORDERED: INSULIN REGULAR, HUMAN 100 UNIT/ML 3 ML VIAL SQ PRN (01:30)
[2018-01-24 01:40] VITALS: BP 140/74
[2018-01-24] MEDS ORDERED: MAG HYDROX/AL HYDROX/SIMETH 30 ML UDC PO PRN (02:00)
[2018-01-24] MEDS: PIPERACILLIN /TAZOBACTAM 2.25 G in IV NS 0.9% 50 ML IV SCH ×4 (02:00→18:19)
[2018-01-24] MEDS ORDERED: ENOXAPARIN SODIUM 40 MG/0.4 ML DISP.SYRIN SQ ONE (02:00)
[2018-01-24] MEDS ORDERED: MAGNESIUM HYDROXIDE 30 ML UDC PO PRN (02:00)
[2018-01-24] MEDS ORDERED: ACETAMINOPHEN 325 MG TABLET PO PRN (02:00)
[2018-01-24] MEDS ORDERED: ZOLPIDEM TARTRATE 5 MG TABLET PO PRN (02:00)
[2018-01-24] MEDS ORDERED: ONDANSETRON HCL/PF 4 MG/2 ML VIAL IVP PRN (02:00)
[2018-01-24] MEDS ORDERED: Z GUARD REMEDY 2 OZ OINT TP PRN (02:00)
[2018-01-24] MEDS: POTASSIUM CL. PREMIX PERIPHER. 50 ML IV SCH ×2 (02:30→03:30)
--- NOTE | 2018-01-24 02:30 | NUR ---
POTASSIUM WAS NOT ADMINISTERED DUE TO MEDICATION BEING UNAVAILABLE IN STOCK. MD NOTIFIED, AWAITING FOR FURTHER ORDERS.
[2018-01-24] MEDS ORDERED: PIPERACILLIN /TAZOBACTAM 2.25 G VIAL IV ONE (02:58)
[2018-01-24] MEDS ORDERED: DEXTROSE 50%-WATER 50 ML DISP.SYRIN IV PRN (03:00)
[2018-01-24] MEDS: IV NS 0.9% 1,000 ML IV PRN ×2 (03:17→17:39)
[2018-01-24 04:39] VITALS: BP 117/69
[2018-01-24] MEDS: BLOOD SUGAR DIAGNOSTIC 1 EACH STRIP IN SCH ×4 (06:58→21:37)
[2018-01-24] MEDS: INSULIN REGULAR, HUMAN 100 UNIT/ML 3 ML VIAL SQ PRN ×4 (07:02→21:42)
--- NOTE | 2018-01-24 07:20 | NUR ---
PATIENT PULLED OUT HER IV LINE. EMIGDIO REATTEMPTED INSERTING NEW LINE SEVERAL TIMES WITHOUT SUCCESS. WILL NOTIFY MD FOR FURTHER INSTRUCTIONS. IV ANTIBIOTICS HELD AT THIS TIME.
--- NOTE | 2018-01-24 07:48 | NUR ---
TIE LAYER CLOSING NOTES PATIENT AWAKE, ALERT ORIENTED X1 TO NAME ONLY. ON 2 L OXYGEN VIA NC. NO APPARENT DISTRESS OR DISCOMFORT NOTED AT THIS TIME. RESPIRATIONS EVEN AND UNLABORED. LEFT AC HL WAS PULLED OUT BY THE PATIENT IN THE MORNING. REATTEMPTED TO INSERT NEW LINE, WAS UNSUCCESSFUL. NOTIFIED MD. ANTIBIOTICS HELD AT THIS TIME. VITAL SIGNS TAKEN AND RECORDED. PATIENT MADE COMFORTABLE IN BED. SAFETY MEASURES IN PLACE, BED IN LOW LOCKED POSITION, SIDE RAILS UP X2, ALARM ON. CALL LIGHT WITHIN EASY REACH. WILL ENDORSE TO AM NURSE FOR CONTINUATION OF CARE.
[2018-01-24 08:00] VITALS: BP 121/62
--- NOTE | 2018-01-24 08:00 | NUR ---
SEMICONDUCTOR ENGINEER: INITIAL NOTE RECEIVED PT A/OX1. CONFUSED. ON TELE MONITORING SR AT 97 BPM. DIAPER. INCONTINENT. SKIN INTACT. BED REST. NO DISTRESS NOTED. NO SOB NOTED. NO PAIN NOTED. BED ALARM IN PLACE. L AC #22 HL. RESTING COMFORTABLY IN BED. CALL LIGHT WITHIN REACH.
[2018-01-24] MEDS: PAROXETINE HCL 20 MG TABLET PO SCH (08:14)
[2018-01-24] MEDS: MIRTAZAPINE 15 MG TABLET PO SCH ×2 (08:14→17:32)
[2018-01-24] MEDS: PIOGLITAZONE HCL 15 MG TABLET PO SCH (08:14)
[2018-01-24] MEDS: LINAGLIPTIN 5 MG TABLET PO SCH (08:14)
[2018-01-24] MEDS: ATORVASTATIN 10 MG TABLET PO SCH (08:14)
[2018-01-24 16:00] VITALS: BP 120/69
--- NOTE | 2018-01-24 18:47 | NUR ---
SHOULDER SAWYER: CLOSING NOTE PT TOOK ALL MEDICATIONS ON TIME. NO ADVERSE REACTIONS NOTED. NO PAIN NOTED. NO SOB NOTED. A/OX1. SLIGHTLY CONFUSED. CONTENT. USES DIAPER.. AMBULATES WITH ASSIST TO RESTROOM. SKIN INTACT. L AC #22 RUNNING NS AT 75ML/HR. SITE CLEAR AND PATENT. NO REDNESS OR BLEEDING NOTED. INSULIN GIVEN PER SLIDING SCALE. RESTING COMFORTABLY IN BED. CALL LIGHT WITHIN REACH.
--- NOTE | 2018-01-24 19:30 | NUR ---
TELE/RN OPENING NOTES PT RECEIVED ASLEEP, EASILY AROUSABLE TO NAME/LIGHT TOUGH. A/OX1. DAUGHTER AT BEDSIDE. ON ROOM AIR, BREATHING EVEN AND UNLABORED. NO S/S OF DISTRESS OR PAIN NOTED. ON TELE MONITOR SHOWING SINUS TACH WITH 1ST DEGREE AV BLOCK AND PAC'S HR 109. PT IS CALM AT THIS TIME. IV TO LAC PATENT AND INTACT RUNNING IVF ORDERED. BED IN LOW/LOCKED POSITION WITH CALL LIGHT IN REACH. SIDE RAILS UPX2 AND BED ALARM ON FOR SAFETY. WILL CONTINUE TO MONITOR
[2018-01-24 20:00] VITALS: BP 124/72
--- NOTE | 2018-01-24 20:15 | NUR ---
TELE/RN NOTES TEMP NOTED TO BE 99.3F ORAL. COOLING MEASURES IMPLEMENTED. WILL CONTINUE TO MONITOR
[2018-01-24] MEDS: INSULIN DETEMIR 100 UNIT/ML CARTRIDGE SQ SCH (21:41)
[2018-01-24] MEDS ORDERED: ENOXAPARIN SODIUM 40 MG/0.4 ML DISP.SYRIN SQ SCH (22:00)
--- NOTE | 2018-01-24 23:35 | NUR ---
TELE/RN NOTES RT AT BEDSIDE FOR EKG
[2018-01-25] VITALS (7 sets, daily range): BP systolic 113–140; BP diastolic 61–73
--- NOTE | 2018-01-25 00:02 | NUR ---
TELE/RN NOTES NOTIFIED DR. MONTESINOS ABOUT PT'S CHANGE TO A.FIB STILL WITH 1ST DEGREE AV BLOCKS FROM ST WITH 1ST DEGREE AV BLOCK WITH PAC'S AND ESCAPE PJC'S. HR RANGING FROM 98-105. ALSO NOTIFIED HIM OF K=3.4, PT IS EASILY AROUSABLE, ASYMPTOMATIC. NO NEW ORDERS AT THIS TIME. WILL CONTINUE TO MONITOR
[2018-01-25] MEDS: PIPERACILLIN /TAZOBACTAM 2.25 G in IV NS 0.9% 50 ML IV SCH ×6 (00:34→23:52)
[2018-01-25] MEDS: BLOOD SUGAR DIAGNOSTIC 1 EACH STRIP IN SCH ×4 (06:30→22:17)
[2018-01-25] MEDS: INSULIN REGULAR, HUMAN 100 UNIT/ML 3 ML VIAL SQ PRN ×4 (06:32→22:31)
[2018-01-25 06:42] LABS: BASOPHILS % (AUTO) 0.2 % (0.0-2.0); EOSINOPHILS # (AUTO) 0.1 /CMM (0.0-0.7); EOSINOPHILS % (AUTO) 0.8 % (0.0-6.0); HEMATOCRIT 32 % (33-45); HEMOGLOBIN 10.8 g/dL (11.5-14.8); LYMPHOCYTES # (AUTO) 3.2 /CMM (0.8-4.8); LYMPHOCYTES % (AUTO) 23.4 % (20.0-44.0); MEAN CORPUSCULAR HEMOGLOBIN 32 PG (26.0-33.0); MEAN CORPUSCULAR HGB CONC 34 g/dl (31.0-36.0); MEAN CORPUSCULAR VOLUME 94 fL (82-100); MONOCYTES # (AUTO) 1.4 /CMM (0.1-1.30); MONOCYTES % (AUTO) 10.5 % (2.0-12.0); NEUTROPHILS # (AUTO) 8.9 /CMM (1.8-8.9); NEUTROPHILS % (AUTO) 65.1 % (43.0-81.0); PLATELET COUNT (AUTO) 162 /CMM (150-450); RDW COEFFICIENT OF VARIATION 12.4 (11.5-15.0); RED BLOOD CELL COUNT(AUTO) 3.39 MIL/uL (4.0-5.2); WHITE BLOOD COUNT (AUTO) 13.6 K/uL (4.3-11.0)
[2018-01-25 06:59] LABS: CHOLESTEROL 143 mg/dL (<200); HDL CHOLESTEROL 44 mg/dL (40-60); LDL 82 mg/dL (0-99); THYROID STIMULATING HORMONE 0.287 uIU/mL (0.358-3.74); TRIGLYCERIDES 120 mg/dL (30-150)
--- NOTE | 2018-01-25 07:03 | NUR ---
TELE/RN CLOSING NOTES PT ASLEEP, AROUSABLE TO NAME AND LIGHT TOUCH. ON ROOM AIR, BREATHING EVEN AND SLIGHTLY LABORED. NO S/S OF SOB, PAIN OR DISTRESS. ON TELE MONITOR SHOWING SINUS RHYTHM WITH 1ST DEGREE AV BLOCK AND OCCASIONAL PJC'S. HR=79. MD AWARE OF A.FIB LAST NIGHT WITH NO ORDERS. IV TO LAC PATENT AND INTACT RUNNING IVF ORDERED. NO SIGNIFICANT CHANGES OVERNIGHT. PT REMAINED CALM DURING SHIFT. BED REMAINS IN LOW/LOCKED POSITION WITH CALL LIGHT IN REACH. SIDE RAISL UPX2 AND BED ALARM ON FOR SAFETY. WILL ENDORSE TO DAY SHIFT RN JOSE.
[2018-01-25 07:04] LABS: CALCIUM, SERUM 8.2 mg/dL (8.5-10.1); CARBON DIOXIDE 25 mmol/L (21-32); CHLORIDE 102 mmol/L (98-107); CREATININE 1.1 mg/dL (0.6-1.3); GLUCOSE 224 mg/dL (74-106); MAGNESIUM 1.6 mg/dL (1.8-2.4); PHOSPHORUS 2.8 mg/dL (2.5-4.9); POTASSIUM 3.1 mmol/L (3.5-5.1); SODIUM SERUM 137 mmol/L (136-145); UREA NITROGEN, BLOOD 16 mg/dL (7-18)
--- NOTE | 2018-01-25 08:00 | NUR ---
rn notes received patient in the bed a/o x1, Thai speaker, patient on tele monitor, sr-89, v/s stable, no acute respiratory distress, iv line on left forearm infusing ns at 75 ml/hr intact, needs attended and anticipated, dvt pump on, call light within to reach, safety precaution maintained all the time.
[2018-01-25] MEDS: MIRTAZAPINE 15 MG TABLET PO SCH ×3 (09:00→16:46)
[2018-01-25 10:07] LABS: TROPONIN I 0.003 ng/mL (0.00-0.056)
[2018-01-25] MEDS: POTASSIUM CHLORIDE 20 MEQ TAB.PRT.SR PO SCH ×3 (10:41→13:34)
[2018-01-25] MEDS: PAROXETINE HCL 20 MG TABLET PO SCH (10:42)
[2018-01-25] MEDS: LINAGLIPTIN 5 MG TABLET PO SCH (10:42)
[2018-01-25] MEDS: ATORVASTATIN 10 MG TABLET PO SCH (10:42)
[2018-01-25] MEDS: PIOGLITAZONE HCL 15 MG TABLET PO SCH (10:42)
[2018-01-25] MEDS: Magnesium 1GM/D5W 100ML PREMIX 100 ML IV SCH ×2 (10:44→12:31)
--- NOTE | 2018-01-25 11:00 | NUR ---
rn notes scheduled medication administered, infusing mg 100ml/hr, patient going to transfer on [facility] per dr Pryor.
--- NOTE | 2018-01-25 11:30 | NUR ---
RN NOTES TRANSFER PATIENT TO [facility] FOLLOW UP, V/S STABLE, HR 89, NO ACUTE RESPIRATORY DISTRESS. REPORT GIVEN BEDSIDE RAVIN CAT. RN VERBALIZED UNDERSTANDING. BELONGING WITH THE PATIENT.
--- NOTE | 2018-01-25 11:30 | NUR ---
RN NOTES PATIENT'S DAUGHTER NAME LINETTE PHONE # [phone] AWARE OF TRANSFER.
[2018-01-25] MEDS ORDERED: AMIODARONE 150 MG in IV D5W 100 ML IV ONE ×4 (12:00)
[2018-01-25] MEDS ORDERED: AMIODARONE 900 MG in IV D5W 482 ML IV PRN ×4 (12:00)
--- NOTE | 2018-01-25 12:00 | NUR ---
LUH PLUMBING ASSEMBLER INSTALLER NOTES: REC'D PT VIA BED, NOT IN ANY DISTRESS, A/O X 2, ACCOMPANIED BY 2 RN. ON ROOM AIR, SATING AT 96%. PLACED ON TELEMONITOR, A.FLUTTER/A.FIB W/ HR 84 BPM. HAS R HAND G22, SL, PATENT & INTACT W/ ONGOING MG INFUSION. PT DENIES CHEST PAIN/DISCOMFORT AT THIS TIME. PT ORIENTED TO ROOM. PROVIDED COMFORT & SAFETY MEASURES. BED KEPT LOW & IN LOCKED POS. CALL LIGHT PLACED W/IN REACH. BED ALARM KEPT ON FOR SAFETY. MIDLINE INSERTED. GIVEN AMIO BOLUS ORDERED & STARTED AMIO DRIP AFTER. PT'S RHYTHM CONVERTED TO SR W/ HR 82 BPM, BP 138/76. DR. ESTRELLA MADE AWARE OF CHANGE W/ ORDERS TO CONTINUE AMIO DRIP. WILL CONTINUE TO MONITOR & ATTEND PT NEEDS.
[2018-01-25] MEDS: RIVAROXABAN 10 MG TABLET PO SCH (16:50)
[2018-01-25] MEDS: MUPIROCIN OINT 2% 22 GM TUBE SCH (17:03)
--- NOTE | 2018-01-25 18:54 | NUR ---
RN CLOSING NOTES: NO ACUTE CHANGES NOTED W/IN SHIFT. PT TOLERATED ROOM AIR, NO SOB. ON TELEMONITOR, STILL SR HR 76 WHILE ON AMIO DRIP X 0.5 MG. IV LINE ACCESS: JOSÉ LUIS MIDLINE & R HAND G22 KEPT PATENT & INTACT W/ NO S/SX OF INFECTION/INFILTRATION NOTED. PT KEPT WELL RESTED. NEEDS ATTENDED. BED KEPT LOW & IN LOCKED POS. ISOLATION PREC OBSERVED. WILL ENDORSE TO PM RN FOR JOSE.
--- NOTE | 2018-01-25 19:30 | NUR ---
LUH RN INITIAL NOTE PT RECEIVED SITTING UP IN BED WITH SON AT BEDSIDE. A/O X 2-3 FANG SPEAKING BUT SPEAKS A LITTLE MARSHALLESE AND ABLE TO MAKE SOME NEEDS KNOWN. ON ROOM AIR AND SATURATING 96%. BREATHING REGULAR, EVEN AND UNLABORED. TELE- SR 90'S. IV JOSÉ LUIS MIDLINE CLEAN AND DRY WITH FLUIDS INFUSING AT THIS TIME. BED LOCKED IN PLACE AND IN LOWEST POSITION WITH BED ALARM ENABLED. CALL LIGHT WITHIN REACH. WILL CONTINUE TO MONITOR.
[2018-01-25] MEDS: INSULIN DETEMIR 100 UNIT/ML CARTRIDGE SQ SCH (22:00)
--- NOTE | 2018-01-25 22:38 | NUR ---
[facility] RN NOTE LEVEMIR 20 UNITS HELD D/T MEDICATION NOT AVAILABLE. MEDICATION AT HAND IS LANTUS BUT IT IS MISLABELED WITH LEVEMIR. SPOKE WITH PHARMACY WITH ORDER TO HOLD BECAUSE OF MISLABELING. WILL F/U IN THE MORNING.
[2018-01-26] VITALS: BP 157/74
[2018-01-26] MEDS: IV NS 0.9% 1,000 ML IV PRN ×2 (01:17→15:23)
[2018-01-26 04:00] VITALS: BP 157/74
[2018-01-26] MEDS: HYDROCODONE/APAP 5/325MG 1 EACH TABLET PO PRN ×2 (04:39→16:23)
[2018-01-26] MEDS: PIPERACILLIN /TAZOBACTAM 2.25 G in IV NS 0.9% 50 ML IV SCH ×4 (05:34→23:25)
[2018-01-26 06:49] LABS: BASOPHILS % (AUTO) 0.1 % (0.0-2.0); EOSINOPHILS # (AUTO) 0.2 /CMM (0.0-0.7); EOSINOPHILS % (AUTO) 1.6 % (0.0-6.0); HEMATOCRIT 33 % (33-45); HEMOGLOBIN 11.3 g/dL (11.5-14.8); LYMPHOCYTES # (AUTO) 3.4 /CMM (0.8-4.8); MEAN CORPUSCULAR HEMOGLOBIN 32 PG (26.0-33.0); MEAN CORPUSCULAR HGB CONC 34 g/dl (31.0-36.0); MEAN CORPUSCULAR VOLUME 94 fL (82-100); MONOCYTES % (AUTO) 7.6 % (2.0-12.0); NEUTROPHILS % (AUTO) 65.7 % (43.0-81.0); PLATELET COUNT (AUTO) 224 /CMM (150-450); RDW COEFFICIENT OF VARIATION 12.6 (11.5-15.0); WHITE BLOOD COUNT (AUTO) 13.7 K/uL (4.3-11.0)
[2018-01-26 07:02] LABS: ALANINE AMINOTRANSFERASE 25 U/L (12-78); ALBUMIN 3.2 g/dL (3.4-5.0); ALKALINE PHOSPHATASE 54 U/L (46-116); ASPARTATE AMINOTRANSFERASE 26 U/L (15-37); BILIRUBIN,TOTAL 0.6 mg/dL (0.2-1.0); CALCIUM, SERUM 8.2 mg/dL (8.5-10.1); CARBON DIOXIDE 24 mmol/L (21-32); CHLORIDE 102 mmol/L (98-107); CREATININE 1.1 mg/dL (0.6-1.3); GLUCOSE 197 mg/dL (74-106); PHOSPHORUS 2.6 mg/dL (2.5-4.9); POTASSIUM 3.7 mmol/L (3.5-5.1); SODIUM SERUM 135 mmol/L (136-145); TOTAL PROTEIN, SERUM 7.4 g/dL (6.4-8.2); UREA NITROGEN, BLOOD 11 mg/dL (7-18)
[2018-01-26 07:05] LABS: TROPONIN I < 0.017 ng/mL (0.00-0.056)
--- NOTE | 2018-01-26 07:30 | NUR ---
LUH RN INITIAL NOTE PT RECEIVED SITTING UP IN BED WITH SON AT BEDSIDE. A/O X 2, FANG SPEAKING BUT SPEAKS A LITTLE ICELANDIC AND ABLE TO MAKE SOME NEEDS KNOWN. ON ROOM AIR AND SATURATING 96%. BREATHING REGULAR, EVEN AND UNLABORED. TELE- SR 60-70S. IV JOSÉ LUIS MIDLINE CLEAN AND DRY WITH FLUIDS INFUSING AT THIS TIME. AMIODARONE DRIP 0.5MG/MIN, BED LOCKED IN PLACE AND IN LOWEST POSITION WITH BED ALARM ENABLED. PATIENT AMBULATORY, CALL LIGHT WITHIN REACH. WILL CONTINUE TO MONITOR.
--- NOTE | 2018-01-26 07:37 | NUR ---
[facility] RN CLOSING NOTE NO ACUTE DISTRESS NOTED. ALL NEEDS ATTENDED TO PROMPTLY. REMAINS ON IV AMIO DRIP 0.5MG. TELE- SR 75. ASSISTED SAFELY TO THE RESTROOM AND BACK TO BED. BED ALARM ENABLED. CALL LIGHT WITHIN REACH AT ALL TIMES. WILL ENDORSE TO NEXT SHIFT FOR CONTINUITY OF CARE.
[2018-01-26] MEDS: BLOOD SUGAR DIAGNOSTIC 1 EACH STRIP IN SCH ×4 (07:51→21:14)
[2018-01-26] MEDS: INSULIN REGULAR, HUMAN 100 UNIT/ML 3 ML VIAL SQ PRN ×4 (07:54→21:16)
[2018-01-26 08:00] VITALS: BP_SYST 144; BP_SYST 155; BP_DIAS 57; BP_DIAS 70
[2018-01-26] MEDS: ATORVASTATIN 10 MG TABLET PO SCH (08:53)
[2018-01-26] MEDS: LINAGLIPTIN 5 MG TABLET PO SCH (08:53)
[2018-01-26] MEDS: PAROXETINE HCL 20 MG TABLET PO SCH (08:53)
[2018-01-26] MEDS: MUPIROCIN OINT 2% 22 GM TUBE SCH ×2 (08:53→16:21)
[2018-01-26] MEDS: MIRTAZAPINE 15 MG TABLET PO SCH ×2 (08:53→16:23)
[2018-01-26] MEDS: PIOGLITAZONE HCL 15 MG TABLET PO SCH (08:53)
[2018-01-26 10:04] LABS: EOSINOPHILS % (MANUAL) 1 % (0-4); LYMPHOCYTES % (MANUAL) 16 % (16-48); MONOCYTES % (MANUAL) 3 % (0-11.0); NEUTROPHILS % (MANUAL) 80 (42-76)
[2018-01-26 12:00] VITALS: BP 150/70
[2018-01-26] MEDS: AMIODARONE HCL 200 MG TABLET PO SCH ×2 (13:38→16:22)
[2018-01-26] MEDS: SOD FERRIC GLUC 125 MG in IV NS 0.9% 100 ML IV SCH (15:07)
[2018-01-26 16:00] VITALS: BP 168/79
[2018-01-26] MEDS: RIVAROXABAN 10 MG TABLET PO SCH (16:23)
--- NOTE | 2018-01-26 17:15 | NUR ---
[employer] SOFTWARE DEVELOPMENT ENGINEER NOTES PATIENTS BP 168/79 FOR 1600 AND 170/83 1700 POST PAIN MEDICATIONS AND SCHEDULED AMIODARONE MEDICATION. DR GARDUNO MADE AWARE, WILL CONTINUE TO MONITOR .
--- NOTE | 2018-01-26 17:50 | NUR ---
WINDOW SASH INSTALLER NOTES PER DR GARDUNO TO CONTINUE TO MONITOR PATIENT, NO NEW ORDERS.
--- NOTE | 2018-01-26 19:00 | NUR ---
POOL COORDINATOR NOTES PATIENT RESTING IN BED, NO SIGNS OF DISTRESS, WILL ENDORSE TO MANAGER BUILDING FOR CONTINUITY OF CARE AND BP MONITORING.
--- NOTE | 2018-01-26 19:05 | NUR ---
MS RN NOTES: RECEIVED PT IN BED AND IS ASLEEP AT THIS TIME. PT ON ROOM AIR AND TOLERATING WELL. NO S/S OF DISTRESS NOTED AT THIS TIME. PT HAS JOSÉ LUIS MIDLINE AND IS BEING INFUSED WITH NS AT 75ML/HR. PT ALSO HAS R WRIST #22G AND IS CURRENTLY S/L. BED ALARM ACTIVATED. CALL LIGHT WITHIN PT'S REACH. BED KEPT IN LOW, LOCKED POSITION, AND SIDE RAILS X 2UP. WILL CONTINUE TO MONITOR PT.
[2018-01-26 20:00] VITALS: BP 144/57
[2018-01-26] MEDS: INSULIN DETEMIR 100 UNIT/ML CARTRIDGE SQ SCH (21:17)
--- NOTE | 2018-01-26 21:22 | NUR ---
MS RN NOTES: BLOOD SUGAR WAS 186. 3 UNITS OF INSULIN WAS GIVEN. 20 UNITS OF LEVEMIR WAS GIVEN WELL. WILL PROVIDE SNACK. WILL CONTINUE TO MONITOR PT.
[2018-01-27] VITALS: BP 148/65
[2018-01-27 04:00] VITALS: BP 156/77
[2018-01-27] MEDS: PIPERACILLIN /TAZOBACTAM 2.25 G in IV NS 0.9% 50 ML IV SCH ×3 (05:10→18:00)
[2018-01-27] MEDS: IV NS 0.9% 1,000 ML IV PRN (05:52)
[2018-01-27 06:38] LABS: BASOPHILS % (AUTO) 0.4 % (0.0-2.0); EOSINOPHILS # (AUTO) 0.3 /CMM (0.0-0.7); HEMATOCRIT 29 % (33-45); LYMPHOCYTES # (AUTO) 2.7 /CMM (0.8-4.8); LYMPHOCYTES % (AUTO) 27.5 % (20.0-44.0); MEAN CORPUSCULAR HEMOGLOBIN 33 PG (26.0-33.0); MEAN CORPUSCULAR HGB CONC 35 g/dl (31.0-36.0); MEAN CORPUSCULAR VOLUME 94 fL (82-100); MONOCYTES # (AUTO) 0.9 /CMM (0.1-1.30); MONOCYTES % (AUTO) 8.8 % (2.0-12.0); NEUTROPHILS % (AUTO) 60.3 % (43.0-81.0); PLATELET COUNT (AUTO) 202 /CMM (150-450); RDW COEFFICIENT OF VARIATION 12.9 (11.5-15.0); RED BLOOD CELL COUNT(AUTO) 3.09 MIL/uL (4.0-5.2); WHITE BLOOD COUNT (AUTO) 9.9 K/uL (4.3-11.0)
[2018-01-27 06:56] LABS: CALCIUM, SERUM 8.2 mg/dL (8.5-10.1); CARBON DIOXIDE 25 mmol/L (21-32); CHLORIDE 106 mmol/L (98-107); GLUCOSE 175 mg/dL (74-106); MAGNESIUM 1.7 mg/dL (1.8-2.4); PHOSPHORUS 3.2 mg/dL (2.5-4.9); POTASSIUM 3.8 mmol/L (3.5-5.1); SODIUM SERUM 139 mmol/L (136-145); UREA NITROGEN, BLOOD 10 mg/dL (7-18)
--- NOTE | 2018-01-27 06:58 | NUR ---
MS RN CLOSING NOTES: ALL NEEDS WERE ATTENDED AND ANTICIPATED FOR. PT IS ASLEEP AT THIS TIME AND IS RESTING COMFORTABLY. PT ON ROOM AIR AND TOLERATING WELL. NO S/S OF DISTRESS. NO SOB NOTED. WHEN PT WAS WOKEN UP, PT WAS A/OX2-3. BED ALARM ACTIVATED. PT HAS JOSÉ LUIS MIDLINE AND IS BEING INFUSED WITH NS AT 75ML/HR. CALL LIGHT WITHIN PT'S REACH. BED KEPT IN LOW, LOCKED POSITION, AND SIDE RAILS X 2UP. WILL ENDORSE TO AM NURSE FOR JOSE.
--- NOTE | 2018-01-27 07:40 | NUR ---
MS RN OPENING NOTES: RECEIVED PT IN BED ASLEEP AT THIS TIME EASILY AROUSABLE DURING CARE. PT ON ROOM AIR, RESPIRATIONS EVEN AND UNLABORED. NO S/S OF DISTRESS NOTED AT THIS TIME. PT HAS JOSÉ LUIS MIDLINE AND IS BEING INFUSED WITH NS AT 75ML/HR. PT ALSO HAS R WRIST #22G AND IS CURRENTLY S/L. BED ALARM ACTIVATED. CALL LIGHT WITHIN PT'S REACH. BED KEPT IN LOW, LOCKED POSITION, AND SIDE RAILS X 2UP. WILL CONTINUE TO MONITOR PT.
[2018-01-27] MEDS: BLOOD SUGAR DIAGNOSTIC 1 EACH STRIP IN SCH ×3 (07:56→16:34)
[2018-01-27 08:00] VITALS: BP 156/75
[2018-01-27] MEDS: INSULIN REGULAR, HUMAN 100 UNIT/ML 3 ML VIAL SQ PRN ×3 (08:03→16:37)
[2018-01-27] MEDS: MUPIROCIN OINT 2% 22 GM TUBE SCH ×2 (08:24→16:38)
[2018-01-27] MEDS: MIRTAZAPINE 15 MG TABLET PO SCH ×2 (08:25→16:25)
[2018-01-27] MEDS: ATORVASTATIN 10 MG TABLET PO SCH (08:25)
[2018-01-27] MEDS: PIOGLITAZONE HCL 15 MG TABLET PO SCH (08:25)
[2018-01-27] MEDS: PAROXETINE HCL 20 MG TABLET PO SCH (08:25)
[2018-01-27] MEDS: LINAGLIPTIN 5 MG TABLET PO SCH (08:26)
[2018-01-27] MEDS: AMIODARONE HCL 200 MG TABLET PO SCH ×3 (08:26→16:26)
[2018-01-27] MEDS: Magnesium 1GM/D5W 100ML PREMIX 100 ML IV SCH ×2 (11:34→14:12)
[2018-01-27] MEDS ORDERED: Magnesium 1GM/D5W 100ML PREMIX 100 ML IV SCH (12:15)
[2018-01-27] MEDS ORDERED: NITR100C6 PO (14:13)
[2018-01-27] MEDS ORDERED: AMIO200T7 PO ×2 (14:13→15:50)
[2018-01-27] MEDS ORDERED: RIVA10TA PO (14:13)
--- NOTE | 2018-01-27 15:00 | NUR ---
RN NOTES PATIENT WITH DISCHARGE ORDERS, NOTIFIED REPLENISHMENT SPECIALIST MCCALLUM PT WITH NO FURTHER STOOL AFTER AM FOR STOOL FOR OCCULT ORDER PER REPLENISHMENT SPECIALIST OKAY TO DC PATIENT, FAMILY WILL ROLL COATING MACHINE OPERATOR PT AT 1700, WILL CONTINUE TO MONITOR AND ASSIST WITH DC PROCESS AT THIS TIME
[2018-01-27] MEDS: SOD FERRIC GLUC 125 MG in IV NS 0.9% 100 ML IV SCH (15:21)
[2018-01-27] MEDS ORDERED: AMIO100T4 PO ×2 (15:50→15:51)
[2018-01-27] MEDS ORDERED: AMIO200T2 PO (15:51)
[2018-01-27 16:00] VITALS: BP 115/58
[2018-01-27 16:26] VITALS: BP 115/58
[2018-01-27] MEDS: RIVAROXABAN 10 MG TABLET PO SCH (16:31)
--- NOTE | 2018-01-27 18:36 | NUR ---
MS WEBBING TACKER NOTES: PT IN BED AWAKE ALERT AND VERBALLY RESPONSIVE ABLE TO MAKE NEEDS KNOWN. PT ON ROOM AIR, RESPIRATIONS EVEN AND UNLABORED. NO S/S OF DISTRESS NOTED AT THIS TIME. PT HAS JOSÉ LUIS MIDLINE AND R WRIST #22G AND ID BAND REMOVED WITH NO ASE NOTED. NO PICTURES OF SKIN NEEDED AT THIS TIME. ALL DISCHARGE INSTRUCTIONS PROVIDED AND REVIEWED WITH DAUGHTER WITH VERBAL UNDERSTANDING NOTED. ASSISTED TO LOBBY, DISCHARGED IN STABLE CONDITION
== END 2018-01-27 18:25 | disposition home or self-care (01) | DRG 469 ==
LOC: ER 20:52 → TELE 01-24 00:02 → TELE1 01-25 11:51 → TELE-TD 01-25 12:06 → MEDSG1 01-26 11:32
PROC: 05H533Z Insertion of Infusion Device into Right Subclavian Vein, Percutaneous Approach (ICD-10-PCS; principal; 2018-01-25)
DX: N17.0 Acute kidney failure with tubular necrosis (principal); G93.40 Encephalopathy, unspecified; E11.65 Type 2 diabetes mellitus with hyperglycemia; I48.91 Unspecified atrial fibrillation; N39.0 Urinary tract infection, site not specified; E86.0 Dehydration; F03.90 Unspecified dementia, unspecified severity, without behavioral disturbance, psychotic disturbance, mood disturbance, and anxiety; E87.6 Hypokalemia; Z88.1 Allergy status to other antibiotic agents; Z85.72 Personal history of non-Hodgkin lymphomas; Z91.041 Radiographic dye allergy status; B96.20 Unspecified Escherichia coli [E. coli] as the cause of diseases classified elsewhere; Z79.4 Long term (current) use of insulin; Z79.899 Other long term (current) drug therapy
CPT/HCPCS: 36415; 70450-TC; 71045-TC; 80048-TC; 80053-TC; 80061-TC; 80076-TC; 81000-TC; 82306; 82728-TC; 82962-TC; 83540-TC; 83605-TC; 83735-TC; 84100-TC; 84439-TC; 84443-TC; 84484-TC; 85025-TC; 85730-TC; 87040-TC; 87081-TC; 87086-TC; 87186-TC; 93307-TC; A4216; A4606; J0282; J1650; J1815; J2543; J2916; J3475; J7030; J7060; Z7610

== ENCOUNTER 2018-03-04 18:34 | Emergency (ER) | payer MEDICARE, MEDICAID ==
[~2018-03-04] VITALS: Ht 157.5 cm; Wt 67.1 kg
[~2018-03-04 18:34] MED LIST changes: +AMIO100T4 PO; +AMIO200T4 PO; +AMIO200T7 PO; -CEFT1VIA15 IV; +NITR100C6 PO; +RIVA10TA PO
[2018-03-04 18:47] VITALS: BP 134/66
== END 2018-03-04 20:25 | disposition home or self-care (01) ==
LOC: ER 18:35
DX: S60.445A External constriction of left ring finger, initial encounter (principal); E11.9 Type 2 diabetes mellitus without complications; F03.90 Unspecified dementia, unspecified severity, without behavioral disturbance, psychotic disturbance, mood disturbance, and anxiety; I10 Essential (primary) hypertension; I48.91 Unspecified atrial fibrillation; Z88.8 Allergy status to other drugs, medicaments and biological substances; Z79.4 Long term (current) use of insulin; Z88.1 Allergy status to other antibiotic agents; W49.09XA Other specified item causing external constriction, initial encounter; Y93.89 Activity, other specified; Y92.89 Other specified places as the place of occurrence of the external cause; Y99.8 Other external cause status
CPT/HCPCS: 99284; A4606; Z7610

== ENCOUNTER 2022-08-14 15:49 | Emergency (ER) | payer MEDICARE, OTHER ==
[~2022-08-14] VITALS: Ht 157.5 cm; Wt 54.4 kg
[~2022-08-14 15:49] MED LIST changes: -AMIO200T4 PO; +AMIO200T5 PO; +MIRT-90 PO; -MIRT15TA7 PO
[2022-08-14 16:08] VITALS: BP 156/91
[2022-08-14] MEDS ORDERED: IBUP-1955 PO (17:08)
[2022-08-14] MEDS ORDERED: CLIN300C12 PO (17:08)
--- NOTE | 2022-08-14 17:21 | NUR ---
Patient discharged to home in stable condition. Written and verbal after care instructions given. Patient verbalizes understanding of instruction.
[2022-08-15] MEDS ORDERED: LOSA50TA39 PO (17:15)
[2022-08-15] MEDS ORDERED: APIX5TAB PO (17:15)
[2022-08-15] MEDS ORDERED: METO25TA4 PO (17:15)
[2022-08-15] MEDS ORDERED: INSU100I24 (17:15)
[2022-08-15] MEDS ORDERED: METF-442 PO (17:15)
[2022-08-16] MEDS ORDERED: PANTOPRAZOLE 40 MG TABLET.DR PO ONE (08:32)
== END 2022-08-14 17:21 | disposition home or self-care (01) ==
LOC: ER 15:52
DX: K04.7 Periapical abscess without sinus (principal); I10 Essential (primary) hypertension; E11.9 Type 2 diabetes mellitus without complications; Z90.710 Acquired absence of both cervix and uterus; Z90.49 Acquired absence of other specified parts of digestive tract; Z88.8 Allergy status to other drugs, medicaments and biological substances; Z79.899 Other long term (current) drug therapy

== ENCOUNTER 2022-08-15 15:47 | Inpatient (IN) | payer MEDICARE, MEDICAID ==
[~2022-08-15] VITALS: Ht 157.5 cm; Wt 56.2 kg
[~2022-08-15 15:47] MED LIST changes: +CLIN300C12 PO; +IBUP-1955 PO
[2022-08-15] MEDS ORDERED: METO25TA4 PO (17:15)
[2022-08-15] MEDS ORDERED: LOSA50TA39 PO (17:15)
[2022-08-15] MEDS ORDERED: INSU100I24 (17:15)
[2022-08-15] MEDS ORDERED: METF-442 PO (17:15)
[2022-08-15] MEDS ORDERED: APIX5TAB PO (17:15)
--- NOTE | 2022-08-15 17:30 | NUR ---
CALLED NURSE SUP FOR MIDLINE
--- NOTE | 2022-08-15 17:34 | NUR ---
COVID SWAB DONE AND SENT TO LAB
[2022-08-15] MEDS ORDERED: CLINDAMYCIN 900 MG in IV D5W 100 ML IV ONE (18:30)
[2022-08-15] MEDS ORDERED: VANCOMYCIN 1 GM in IV D5W 250 ML IV ONE (18:30)
--- NOTE | 2022-08-15 18:39 | NUR ---
VERBAL ORDER NORCO 5-325MG BY DR KATZ
[2022-08-15] MEDS ORDERED: HYDROCODONE/APAP 5/325MG TABLET ONE (18:40)
[2022-08-15] MEDS ORDERED: HYDROCODONE/APAP 5/325MG TABLET PO ONE (19:00)
--- NOTE | 2022-08-15 19:28 | NUR ---
midline coming at 2030 per nurse sup
[2022-08-15] MEDS ORDERED: CLINDAMYCIN 900 MG in IV D5W 50 ML IV ONE (19:30)
--- NOTE | 2022-08-15 19:43 | NUR ---
REPORT RECEIVED FROM EMORY TONEY
--- NOTE | 2022-08-15 20:59 | NUR ---
MIDLINE INSERTED ON LEFT UPPER ARM USING G18. BLOOD WAS DRAWN AND SENT TO LAB.
[2022-08-15 21:03] LABS: BASOPHILS % (AUTO) 0.3 % (0.0-2.0); EOSINOPHILS % (AUTO) 1.7 % (0.0-6.0); HEMATOCRIT 37 % (33-45); HEMOGLOBIN 12.1 g/dL (11.5-14.8); LYMPHOCYTES # (AUTO) 1.4 K/uL (0.8-4.8); LYMPHOCYTES % (AUTO) 15.7 % (20.0-44.0); MEAN CORPUSCULAR HGB CONC 33 g/dl (31.0-36.0); MEAN CORPUSCULAR VOLUME 94 fL (82-100); MONOCYTES # (AUTO) 0.9 K/uL (0.1-1.30); MONOCYTES % (AUTO) 9.9 % (2.0-12.0); NEUTROPHILS # (AUTO) 6.7 K/uL (1.8-8.9); NEUTROPHILS % (AUTO) 72.4 % (43.0-81.0); PLATELET COUNT (AUTO) 177 K/uL (150-450); RED BLOOD CELL COUNT(AUTO) 3.95 MIL/uL (4.0-5.2); WHITE BLOOD COUNT (AUTO) 9.2 K/uL (4.3-11.0)
[2022-08-15] MEDS ORDERED: ACYCLOVIR IV 500 MG in IV D5W 100 ML IV SCH (21:30)
[2022-08-15 21:43] LABS: CALCIUM, SERUM 8.4 mg/dL (8.5-10.1); CARBON DIOXIDE 26 mmol/L (21-32); CHLORIDE 85 mmol/L (98-107); CREATININE 1.5 mg/dL (0.6-1.3); UREA NITROGEN, BLOOD 21 mg/dL (7-18)
[2022-08-15] MEDS ORDERED: ACYCLOVIR IV 500 MG VIAL IV ONE (22:10)
[2022-08-15 22:15] LABS: POTASSIUM 4.1 mmol/L (3.5-5.1)
[2022-08-15 22:16] LABS: GLUCOSE > 500 mg/dL (74-106); SODIUM SERUM 117 mmol/L (136-145)
[2022-08-15] MEDS ORDERED: ACYCLOVIR IV 500 MG in IV D5W 100 ML IV ONE (22:28)
--- NOTE | 2022-08-15 22:37 | NUR ---
MESSAGE EMULSION COATER WALKER ABOUT THE CRITICAL RESULTS.
[2022-08-15] MEDS ORDERED: ONDANSETRON HCL/PF 4 MG/2 ML VIAL IVP PRN (23:00)
[2022-08-15] MEDS ORDERED: Z GUARD REMEDY 4 OZ OINT TP PRN (23:00)
[2022-08-15] MEDS ORDERED: MAGNESIUM HYDROXIDE 30 ML UDC PO PRN (23:00)
[2022-08-15] MEDS ORDERED: MORPHINE SULFATE INJ 4 MG/ML DISP.SYRIN ONE (23:34)
[2022-08-15] MEDS: MORPHINE SULFATE INJ 2 MG/ML DISP.SYRIN IV PRN (23:42)
--- NOTE | 2022-08-15 23:44 | NUR ---
PT BROUGHT TO CT DEPT
--- NOTE | 2022-08-16 00:04 | NUR ---
SEEN BY IDENTITY ACCESS MANAGEMENT ARCHITECT WALKER AT BEDSIDE
[2022-08-16] MEDS: predniSONE 20 MG TABLET PO SCH ×2 (01:00→10:14)
[2022-08-16] MEDS: CLOBETASOL 0.05% CREAM 15 GM TUBE TP SCH ×3 (01:00→17:47)
[2022-08-16 01:17] LABS: CALCIUM, SERUM 9.8 mg/dL (8.5-10.1); CARBON DIOXIDE 28 mmol/L (21-32); CHLORIDE 96 mmol/L (98-107); CREATININE 1.3 mg/dL (0.6-1.3); GLUCOSE 160 mg/dL (74-106); POTASSIUM 4.4 mmol/L (3.5-5.1); SODIUM SERUM 133 mmol/L (136-145); UREA NITROGEN, BLOOD 23 mg/dL (7-18)
[2022-08-16] MEDS ORDERED: ACETAMINOPHEN 325 MG TABLET ONE ×2 (01:17→08:51)
[2022-08-16] MEDS ORDERED: predniSONE 20 MG TABLET ONE (01:24)
[2022-08-16] MEDS ORDERED: DEXTROSE 50%-WATER 50 ML DISP.SYRIN IV PRN (01:30)
[2022-08-16] MEDS ORDERED: CLINDAMYCIN 900 MG/6 ML VIAL ONE (04:54)
[2022-08-16] MEDS ORDERED: MORPHINE SULFATE INJ 4 MG/ML DISP.SYRIN ONE (04:55)
[2022-08-16 05:12] LABS: BASOPHILS % (AUTO) 0.2 % (0.0-2.0); EOSINOPHILS % (AUTO) 0.4 % (0.0-6.0); HEMATOCRIT 41 % (33-45); HEMOGLOBIN 13.4 g/dL (11.5-14.8); LYMPHOCYTES # (AUTO) 0.7 K/uL (0.8-4.8); LYMPHOCYTES % (AUTO) 5.9 % (20.0-44.0); MEAN CORPUSCULAR HGB CONC 33 g/dl (31.0-36.0); MEAN CORPUSCULAR VOLUME 91 fL (82-100); MONOCYTES # (AUTO) 0.3 K/uL (0.1-1.30); MONOCYTES % (AUTO) 2.6 % (2.0-12.0); NEUTROPHILS % (AUTO) 90.9 % (43.0-81.0); PLATELET COUNT (AUTO) 190 K/uL (150-450); RED BLOOD CELL COUNT(AUTO) 4.49 MIL/uL (4.0-5.2); WHITE BLOOD COUNT (AUTO) 12.1 K/uL (4.3-11.0)
[2022-08-16] MEDS: CLINDAMYCIN 900 MG in IV D5W 50 ML IV SCH ×3 (05:12→20:12)
[2022-08-16] MEDS: MORPHINE SULFATE INJ 2 MG/ML DISP.SYRIN IV PRN ×3 (05:14→20:13)
[2022-08-16 05:29] LABS: CALCIUM, SERUM 9.5 mg/dL (8.5-10.1); CARBON DIOXIDE 29 mmol/L (21-32); CHLORIDE 97 mmol/L (98-107); CREATININE 1.2 mg/dL (0.6-1.3); GLUCOSE 210 mg/dL (74-106); MAGNESIUM 1.9 mg/dL (1.8-2.4); POTASSIUM 4.8 mmol/L (3.5-5.1); SODIUM SERUM 132 mmol/L (136-145); UREA NITROGEN, BLOOD 22 mg/dL (7-18)
[2022-08-16 05:33] LABS: CHOLESTEROL 123 mg/dL (<200); HDL CHOLESTEROL 46 mg/dL (40-60); LDL 54 mg/dL (0-99); TRIGLYCERIDES 159 mg/dL (30-150)
[2022-08-16] MEDS: BLOOD SUGAR DIAGNOSTIC 1 EACH STRIP IN SCH ×4 (08:19→22:25)
--- NOTE | 2022-08-16 08:25 | NUR ---
ROOM 311-2
--- NOTE | 2022-08-16 08:31 | NUR ---
PT REPORT GIVEN TO EMORY PAULINO
[2022-08-16] MEDS: PANTOPRAZOLE 40 MG TABLET.DR PO SCH (08:33)
[2022-08-16] MEDS: ACETAMINOPHEN 325 MG TABLET PO PRN (09:03)
--- NOTE | 2022-08-16 09:07 | NUR ---
TRANSFERRED TO FLOOR IN STABLE CONDITION
--- NOTE | 2022-08-16 09:28 | NUR ---
WOUND CARE CONSULT: PT PRESENTS WITH REDNESS, SWELLING TO LEFT SIDE OF FACE AND DRY CRUSTS TO LIPS, PRESENT ON ADMISSION. PT STATES AREA IS VERY PAINFUL PER DAUGHTER AT BEDSIDE. DEFER TO PMD /I.D. FOR FACIAL ISSUE. PT IS CONTINENT. DISCUSSED SKIN PROTECTION WITH NURSING STAFF. MD IN AGREEMENT WITH PLAN OF CARE.
--- NOTE | 2022-08-16 10:00 | NUR ---
MS RN ADMITTING NOTES PATIENT ARRIVED TO UNIT @0910 VIA GURNEY ACCOMPANIED BY TWO ER STAFF AND DAUGHTER. PATIENT AND DAUGHTER ORIENTED TO ROOM AND CALL LIGHT. ON ROOM AIR, NO S/S OF SOB OR RESPIRATORY DISTRESS. PATIENT IS A/Ox2-3 WITH EPISODES OF FORGETFULNESS, CYMRO SPEAKING. VS TAKEN, STABLE. FULL BODY ASSESSMENT COMPLETED: CARDIAC HEART SOUNDS WNL, LUNG SOUNDS WNL, GI/ PATIENT IS CONTINENT LAST BOWEL MOVEMENT UNKNOWN, PATIENT VOIDED AFTER COMING TO UNIT, SKIN ISSUES: L FACE HAS REDNESS AND SWELLING, WITH A SMALL BLISTER NEAR LIP, PHOTOS TAKEN AND FILED IN CHART. IV ACCESS L WRIST #22 G SL AND STAR MIDLINE #18 RUNNING NS @75 ML/HR. BOTH INTACT AND PATENT. SAFETY PRECAUTIONS IN PLACE: BED LOCKED AND IN LOWEST POSITION, HOB ELEVATED, SIDE RAILS UP x2, CALL LIGHT WITHIN REACH, AND BED ALARM ON. WILL CONTINUE TO MONITOR.
[2022-08-16] MEDS: MIRTAZAPINE 15 MG TABLET PO SCH ×2 (10:14→17:47)
[2022-08-16] MEDS: METOPROLOL SUCCINATE 25 MG TAB.SR.24H PO SCH (10:15)
[2022-08-16] MEDS: LOSARTAN POTASSIUM 50 MG TABLET PO SCH (10:15)
[2022-08-16] MEDS: APIXABAN 5 MG TABLET PO SCH ×2 (10:16→17:48)
[2022-08-16] MEDS: IV NS 0.9% 1,000 ML IV PRN (11:05)
[2022-08-16] MEDS: ACYCLOVIR IV 500 MG in IV D5W 100 ML IV SCH ×2 (12:15→21:59)
--- NOTE | 2022-08-16 12:45 | NUR ---
RN NOTES COVERAGE NOT GIVEN FOR BS 262, PATIENT HAS YET TO EAT SINCE BEING IN THE ER. PATIENT ALSO DOES NOT WANT TO EAT LUNCH AT THIS TIME. WILL CONTINUE TO MONITOR PATIENT FOR ANY S/S OF HYPERGLYCEMIA.
[2022-08-16 16:00] VITALS: BP 140/81
[2022-08-16 16:58] VITALS: BP 139/81
[2022-08-16] MEDS: INSULIN REGULAR, HUMAN 100 UNIT/ML 3 ML VIAL SQ PRN ×2 (17:53→22:30)
--- NOTE | 2022-08-16 18:37 | NUR ---
RN CLOSING NOTES PATIENT IN BED RESTING, STABLE ON ROOM AIR, NO S/S OF RESPIRATORY DISTRESS NOTED. A/Ox2-3, FANG SPEAKING, IV ACCESS ON L WRIST #22 AND L UA MIDLINE, BOTH INTACT. MIDLINE RUNNING NS 75 ML/HR. PATIENT HAS L CHEEK CELLULITES, TREATMENT APPLIED. ALL MEDICATION ADMINISTERED. SAFETY MEASURES MAINTAINED: BED LOCKED AND IN LOWEST POSITION, SIDE RAILS UP x2, HOB ELEVATED, CALL LIGHT WITHIN REACH. WILL ENDORSE TO NEXT SHIFT ANY JOSE.
--- NOTE | 2022-08-16 19:25 | NUR ---
MS RN OPENING NOTES RECEIVED PATIENT IN BED; AWAKE, ALERT AND ORIENTED X 2. WITH PERIODS OF FORGETFULNESS. DIVEHI SPEAKING. FAMILY MEMBER @ BEDSIDE. BREATHING EVEN AND NONLABORED. ON ROOM AIR; TOLERATING WELL. NOT IN ANY FORM OF RESPIRATORY DISTRESS. WITH IV ACCESS ON LEFT WRIST 22g: INTACT AND SALINE LOCKED. WITH LEFT UPPER ARM MIDLINE: PATENT AND INTACT INFUSING WITH NS 1L REGULATED @ 75 ML/HR; FLUSHES WELL. ABLE TO MAKE NEEDS KNOWN. SAFETY MEASURES IMPLEMENTED: CALL LIGHT AND TABLE WITHIN REACH, SIDE RAILS UP X2, BED IN LOWEST LOCKED POSITION. WILL CONTINUE TO MONITOR
[2022-08-16 20:00] VITALS: BP 137/68
--- NOTE | 2022-08-16 20:13 | NUR ---
RN NOTES PT C/O LEFT CHEEK PAIN 10/10; PRN MORPHINE 4 MG IV GIVEN ORDERED. WILL CONTINUE TO MONITOR AND REASSESS PT.
[2022-08-16] MEDS: INSULIN GLARGINE, 100 UNIT/ML CARTRIDGE SQ SCH (22:28)
[2022-08-17] MEDS: CLINDAMYCIN 900 MG in IV D5W 50 ML IV SCH ×3 (05:36→20:46)
[2022-08-17] MEDS: IV NS 0.9% 1,000 ML IV PRN (06:01)
[2022-08-17] MEDS: BLOOD SUGAR DIAGNOSTIC 1 EACH STRIP IN SCH ×4 (06:17→22:02)
[2022-08-17] MEDS: INSULIN REGULAR, HUMAN 100 UNIT/ML 3 ML VIAL SQ PRN ×3 (06:19→17:43)
--- NOTE | 2022-08-17 07:05 | NUR ---
MS RN CLOSING NOTES PATIENT IN BED; AWAKE, A/O X 2; CONFUSED. WITH NONLABORED AND EVEN RESPIRATION. STABLE ON ROOM AIR. IN NO APPARENT DISTRESS. BOTH IV ACCESS ON LEFT WRIST 22g AND LEFT UPPER ARM 18g MIDLINE PULLED BY PT. SAFETY MEASURES MAINTAINED: CALL LIGHT AND TABLE WITHIN REACH, SIDE RAILS UP X2, BED IN LOWEST LOCKED POSITION. ENDORSED TO SONALI CAT FOR JOSE.
[2022-08-17 08:00] VITALS: BP 151/76
[2022-08-17] MEDS: CLOBETASOL 0.05% CREAM 15 GM TUBE TP SCH ×2 (09:00→17:45)
[2022-08-17] MEDS: MIRTAZAPINE 15 MG TABLET PO SCH ×2 (10:45→17:23)
[2022-08-17] MEDS: METOPROLOL SUCCINATE 25 MG TAB.SR.24H PO SCH (10:45)
[2022-08-17] MEDS: predniSONE 20 MG TABLET PO SCH (10:46)
[2022-08-17] MEDS: LOSARTAN POTASSIUM 50 MG TABLET PO SCH (10:46)
[2022-08-17] MEDS: PANTOPRAZOLE 40 MG TABLET.DR PO SCH (10:46)
[2022-08-17] MEDS: APIXABAN 5 MG TABLET PO SCH ×2 (10:47→17:25)
[2022-08-17] MEDS: MORPHINE SULFATE INJ 4 MG/ML DISP.SYRIN IV PRN ×2 (12:13→18:41)
[2022-08-17] MEDS ORDERED: LEVOFLOXACIN 500 MG /D5W 100ML 500 MG in PREMIX 1 EA IV SCH (13:00)
[2022-08-17] MEDS: ACETAMINOPHEN 325 MG TABLET PO PRN (14:10)
[2022-08-17] MEDS: ACYCLOVIR 200 MG CAPSULE PO SCH ×2 (14:23→17:23)
[2022-08-17 16:00] VITALS: BP 116/56
--- NOTE | 2022-08-17 18:58 | NUR ---
RN CLOSING NOTES PATIENT IN BED RESTING, STABLE ON ROOM AIR, NO S/S OF RESPIRATORY DISTRESS NOTED. A/Ox2-3, FANG SPEAKING, IV ACCESS ON L UA MIDLINE, INTACT. MIDLINE RUNNING NS 75 ML/HR. PATIENT HAS L CHEEK CELLULITES, TREATMENT APPLIED. ALL MEDICATION ADMINISTERED. SAFETY MEASURES MAINTAINED: BED LOCKED AND IN LOWEST POSITION, SIDE RAILS UP x2, HOB ELEVATED, CALL LIGHT WITHIN REACH. WILL ENDORSE TO NEXT SHIFT ANY JOSE.
--- NOTE | 2022-08-17 19:30 | NUR ---
MS RN OPENING NOTES RECEIVED PATIENT IN BED; AWAKE, ALERT AND ORIENTED X 2-3. WITH PERIODS OF CONFUSION. GERMAN SPEAKING. FAMILY MEMBERS @ BEDSIDE. BREATHING EVEN AND NONLABORED. ON ROOM AIR; TOLERATING WELL. NOT IN ANY FORM OF RESPIRATORY DISTRESS. WITH LEFT UPPER ARM MIDLINE 18g: PATENT AND INTACT INFUSING WITH NS 1L REGULATED @ 75 ML/HR; FLUSHES WELL. SAFETY MEASURES IMPLEMENTED: CALL LIGHT AND TABLE WITHIN REACH, SIDE RAILS UP X2, BED IN LOWEST LOCKED POSITION. WILL CONTINUE TO MONITOR
[2022-08-17 20:00] VITALS: BP 135/71
[2022-08-17] MEDS: INSULIN GLARGINE, 100 UNIT/ML CARTRIDGE SQ SCH (22:00)
--- NOTE | 2022-08-17 22:18 | NUR ---
RN NOTES BLOOD SUGAR CHECKED - 122 MG/DL. NO INSULIN COVERAGE GIVEN; WILL CONTINUE TO MONITOR FOR S/SX OF HYPO/HYPERGLYCEMIA.
[2022-08-18] MEDS: MORPHINE SULFATE INJ 4 MG/ML DISP.SYRIN IV PRN ×2 (00:03→17:03)
[2022-08-18] MEDS: ACETAMINOPHEN 325 MG TABLET PO PRN (02:24)
[2022-08-18] MEDS: CLINDAMYCIN 900 MG in IV D5W 50 ML IV SCH ×2 (05:19→12:01)
[2022-08-18 06:14] LABS: BASOPHILS # (AUTO) 0.1 K/uL (0.0-0.2); BASOPHILS % (AUTO) 0.6 % (0.0-2.0); EOSINOPHILS % (AUTO) 1.2 % (0.0-6.0); HEMATOCRIT 36 % (33-45); HEMOGLOBIN 12.2 g/dL (11.5-14.8); LYMPHOCYTES # (AUTO) 1.5 K/uL (0.8-4.8); LYMPHOCYTES % (AUTO) 16.8 % (20.0-44.0); MEAN CORPUSCULAR HGB CONC 34 g/dl (31.0-36.0); MEAN CORPUSCULAR VOLUME 89 fL (82-100); MONOCYTES # (AUTO) 1.3 K/uL (0.1-1.30); MONOCYTES % (AUTO) 13.8 % (2.0-12.0); NEUTROPHILS # (AUTO) 6.2 K/uL (1.8-8.9); NEUTROPHILS % (AUTO) 67.6 % (43.0-81.0); PLATELET COUNT (AUTO) 167 K/uL (150-450); RED BLOOD CELL COUNT(AUTO) 3.97 MIL/uL (4.0-5.2); WHITE BLOOD COUNT (AUTO) 9.2 K/uL (4.3-11.0)
[2022-08-18 06:29] LABS: CALCIUM, SERUM 8.2 mg/dL (8.5-10.1); POTASSIUM 3.9 mmol/L (3.5-5.1)
[2022-08-18] MEDS: BLOOD SUGAR DIAGNOSTIC 1 EACH STRIP IN SCH ×4 (06:31→22:50)
[2022-08-18] MEDS: INSULIN REGULAR, HUMAN 100 UNIT/ML 3 ML VIAL SQ PRN ×2 (06:37→10:12)
--- NOTE | 2022-08-18 06:37 | NUR ---
RN NOTES BLOOD SUGAR CHECKED - 198 MG/DL. 3U INSULIN GIVEN SQ ORDERED; WILL CONTINUE TO MONITOR FOR S/SX OF HYPO/HYPERGLYCEMIA.
--- NOTE | 2022-08-18 07:07 | NUR ---
MS RN CLOSING NOTES PATIENT IN BED; AWAKE, A/O X 2; CONFUSED. WITH NONLABORED AND EVEN RESPIRATION. STABLE ON ROOM AIR. IN NO APPARENT DISTRESS. WITH LEFT UPPER ARM 18g: PATENT AND INTACT INFUSING WITH NS 1L @ 75 ML/HR; FLUSHES WELL. WITH FAMILY MEMBER @ BEDSIDE. SAFETY MEASURES MAINTAINED: CALL LIGHT AND TABLE WITHIN REACH, SIDE RAILS UP X2, BED IN LOWEST LOCKED POSITION. ENDORSED TO LILY CAT FOR JOSE.
--- NOTE | 2022-08-18 07:30 | NUR ---
RN Opening Note PT AOx2, not able to express her own concerns, mumbles and not able to communicate. Daughter at bedside stating that she will be staying throughout shift to help with mother. Patient shows no signs of distress or discomfort. Discussed plan of care with daughter, she agrees. All safety precautions taken, call light and table within reach, bed at lowest position. Daughter requesting that we do not reposition patient for now since she is comfortable. Daughter would like to apply the topical cream and reposition patient herself as needed. Educated daughter about importance of repositioning, verbalizes understanding. All medications will be crushed, will continue to monitor.
[2022-08-18] MEDS: LOSARTAN POTASSIUM 50 MG TABLET PO SCH (08:11)
[2022-08-18] MEDS: PANTOPRAZOLE 40 MG TABLET.DR PO SCH (08:11)
[2022-08-18] MEDS: ACYCLOVIR 200 MG CAPSULE PO SCH ×3 (08:11→16:43)
[2022-08-18] MEDS: MIRTAZAPINE 15 MG TABLET PO SCH ×2 (08:11→16:43)
[2022-08-18] MEDS: METOPROLOL SUCCINATE 25 MG TAB.SR.24H PO SCH (08:12)
[2022-08-18] MEDS: APIXABAN 5 MG TABLET PO SCH ×2 (08:13→16:44)
[2022-08-18] MEDS: CLOBETASOL 0.05% CREAM 15 GM TUBE TP SCH ×2 (08:14→16:45)
[2022-08-18 08:33] VITALS: BP 138/76
[2022-08-18] MEDS ORDERED: LORAZEPAM INJ 2 MG/ML VIAL IV PRN (09:00)
[2022-08-18] MEDS: LEVOFLOXACIN (250MG) 250 MG TABLET PO SCH (12:34)
[2022-08-18] MEDS ORDERED: LEVOFLOXACIN 250 MG /D5W 50 ML 250 MG in PREMIX 1 EA IV SCH (13:00)
[2022-08-18 16:02] VITALS: BP 139/76
--- NOTE | 2022-08-18 19:05 | NUR ---
RN Closing Note PT AOx1-2, daughter remained at bedside though the whole shift. Provided care and medications as prescribed. Patient on fluids as ordered by provider, no signs of infiltration or swelling on IV noted. Patient remained safe throughout shift. Daughter continues to walk in and out of room without wearing or removing proper PPE, educated on importance of following the isolation precautions specific to pt. states she will follow precautions. All safety precautions taken, call light and table within reach, bed at lowest position.
--- NOTE | 2022-08-18 19:55 | NUR ---
Closing Note Per son pt fell, patient in bed with no signs of distress, does not answer question when asked if she fell, but states that she has no pain and did not injured herself. IV lined unhooked and on IV pole, IV site/mid line with no signs of pulling, intact. Demonstrated to son how IV needs to be twisted out, not pulled out. Son upset when questioned. Son walks in and out of room without following isolation precautions, educated him on importance of following precautions and how cart is placed outside to make it convenient for him and daughter as previously discussed with her. Will bring in bedside commode for pts comfort. Patients son educated on importance of using commode and advised to call nurse for assistance. Patient Vitals signs are stable, no signs of distress. Son and patient verbalize understanding, he states pts daughter will come in later and stay at bedside to provide comfort. Night Nurse and charge nurse made aware of pts status and situation.
[2022-08-18 20:00] VITALS: BP 134/55
--- NOTE | 2022-08-18 20:04 | NUR ---
MS RN OPENING NOTE RECEIVED PT RESTING IN BED. PT A/O X 2-3, ABLE TO MAKE NEEDS KNOWN. NO ACUTE DISTRESS, NO SOB NOTED. FAMILY AT BED SIDE. NO COMPLAINT OF PAIN OR DISCOMFORT AT THIS TIME. PT HAS LEFT UPPER ARM MIDLINE. PT ON ROOM AIR. PT ON ISOLATION PRECAUTION, SAFETY PRECAUTIONS IN PLACE. BED LOCKED IN LOW POSITION, SR UP X 2, CALL LIGHT WITHIN REACH, BED ALARM ON. WILL CONTINUE TO MONITOR PT.
[2022-08-18 20:39] VITALS: BP 134/55
[2022-08-18] MEDS: INSULIN GLARGINE, 100 UNIT/ML CARTRIDGE SQ SCH (22:41)
[2022-08-18] MEDS ORDERED: CLINDAMYCIN 900 MG/6 ML VIAL ONE (22:46)
--- NOTE | 2022-08-18 22:50 | NUR ---
MS RN NOTE PATIENT PULLED OUT IV ACCESS; CHARGE NURSE AND MD AWARE; UNABLE TO ADMINISTER SCHEDULED 2100 IV ABX. PER MD, OK FOR RE-INSERTION; AWAITING MD TO ARRIVE ON UNIT FOR INSERTION; DAUGHTER AT BEDSIDE AWARE;
[2022-08-19] MEDS: CLINDAMYCIN 900 MG in IV D5W 50 ML IV SCH (00:14)
--- NOTE | 2022-08-19 00:16 | NUR ---
MS RN NOTES PATIENT HAD NO IV ACCESS DURING SCHEDULED TIME OF ADMIN 2100. PATIENT PULLED OUT IV SITE, IV TIP INTACT, NO SIGNS OF BLEEDING NOTED; DAUGHTER AT BEDSIDE DURING IV BEING PULLED OUT; DAUGHTER UPSET, REPORTED THIS IS NOT THE FIRST TIME THIS HAPPENED; WILL LE, CAME AND RE-INSERTED JOSÉ LUIS WILL #18G, CHARGE NURSE AND MD AWARE OF LATE ADMINISTRATION; WILL CALL PHARMACY REGARDING DOSING FOR LATER DOSE;
--- NOTE | 2022-08-19 00:42 | NUR ---
MS RN NOTES PATIENT DAUGHTER REQUESTING TO SPEAK WITH CHARGE NURSE; CHARGE NURSE IN ROOM;
--- NOTE | 2022-08-19 04:06 | NUR ---
MS RN NOTES PATIENT WOUND/BLISTERS ON LEFT CHEEK/FACE FROM ADMISSION. PATIENT SCRATCHED FACE TODAY AFTER WAKING UP, PER DAUGHTER SHE DOES NOT KNOW HOW IT HAPPENED; PICTURES TAKEN, CHARGE NURSE MADE AWARE;
--- NOTE | 2022-08-19 05:38 | NUR ---
MS RN NOTES SPOKE WITH [facility] REGARDING CLEOCIN SCHEDULED 0500. PATIENTS 2100 ADMINISTERED 0000, INFORMED THEM CLEOCIN IS ORDERED [id number]; PER CHARGE CLARIFY WITH PHARMACY TO CHANGE TIME OF ADMINISTRATION; AWAITING PHARMACY TO CHANGE TIME; WILL INFORM DAY SHIFT
[2022-08-19] MEDS: IV NS 0.9% 1,000 ML IV PRN (06:12)
[2022-08-19] MEDS: BLOOD SUGAR DIAGNOSTIC 1 EACH STRIP IN SCH ×2 (06:33→11:46)
[2022-08-19] MEDS: INSULIN REGULAR, HUMAN 100 UNIT/ML 3 ML VIAL SQ PRN (06:35)
[2022-08-19 07:04] LABS: BASOPHILS % (AUTO) 0.4 % (0.0-2.0); EOSINOPHILS % (AUTO) 2.8 % (0.0-6.0); HEMATOCRIT 34 % (33-45); HEMOGLOBIN 11.5 g/dL (11.5-14.8); LYMPHOCYTES # (AUTO) 1.9 K/uL (0.8-4.8); LYMPHOCYTES % (AUTO) 24.3 % (20.0-44.0); MEAN CORPUSCULAR HGB CONC 34 g/dl (31.0-36.0); MEAN CORPUSCULAR VOLUME 90 fL (82-100); MONOCYTES # (AUTO) 1.1 K/uL (0.1-1.30); MONOCYTES % (AUTO) 13.2 % (2.0-12.0); NEUTROPHILS # (AUTO) 4.7 K/uL (1.8-8.9); NEUTROPHILS % (AUTO) 59.3 % (43.0-81.0); PLATELET COUNT (AUTO) 184 K/uL (150-450); RED BLOOD CELL COUNT(AUTO) 3.75 MIL/uL (4.0-5.2)
[2022-08-19 07:17] LABS: CALCIUM, SERUM 8.3 mg/dL (8.5-10.1); POTASSIUM 3.6 mmol/L (3.5-5.1)
--- NOTE | 2022-08-19 07:28 | NUR ---
MS RN CLOSING NOTES LEFT PATIENT RESTING IN BED WITH DAUGHTER AT BED SIDE , A/O X 2; CONFUSED. WITH NONLABORED AND EVEN RESPIRATION. STABLE ON ROOM AIR. NO DISTRESS NOTED AT THIS TIME . NO C/O PAIN OR DISCOMFORT. HAS RIGHT UPPER ARM 18g: PATENT AND INTACT INFUSING WITH NS 1L @ 75 ML/HR; FLUSHES WELL. SAFETY MEASURES MAINTAINED: CALL LIGHT WITHIN REACH, SIDE RAILS UP X2, BED IN LOW LOCKED POSITION. ENDORSED PT'S CARE TO ONCOMING NURSE.
--- NOTE | 2022-08-19 07:30 | NUR ---
MS RN OPENING NOTES RECEIVED PATIENT IN BED; AWAKE, ALERT AND ORIENTED X 2-3. WITH PERIODS OF CONFUSION. SAMI SPEAKING. FAMILY MEMBERS @ BEDSIDE. BREATHING EVEN AND NONLABORED. ON ROOM AIR; TOLERATING WELL. NOT IN ANY FORM OF RESPIRATORY DISTRESS. WITH RIGHT UPPER ARM MIDLINE : PATENT AND INTACT INFUSING WITH NS 1L REGULATED @ 75 ML/HR; FLUSHES WELL. SAFETY MEASURES IMPLEMENTED: CALL LIGHT AND TABLE WITHIN REACH, SIDE RAILS UP X2, BED IN LOWEST LOCKED POSITION. WILL CONTINUE TO MONITOR
[2022-08-19 08:00] VITALS: BP 151/86
[2022-08-19] MEDS ORDERED: CLINDAMYCIN 900 MG in IV D5W 50 ML IV SCH (08:00)
[2022-08-19] MEDS: PANTOPRAZOLE 40 MG TABLET.DR PO SCH (08:16)
[2022-08-19] MEDS ORDERED: ACYC-108 PO (08:17)
[2022-08-19] MEDS ORDERED: CLIN300C12 PO (08:17)
[2022-08-19] MEDS: MIRTAZAPINE 15 MG TABLET PO SCH (08:19)
[2022-08-19] MEDS: ACYCLOVIR 200 MG CAPSULE PO SCH ×2 (08:19→13:52)
[2022-08-19] MEDS: METOPROLOL SUCCINATE 25 MG TAB.SR.24H PO SCH (08:20)
[2022-08-19 08:21] VITALS: BP 151/86
[2022-08-19] MEDS: LOSARTAN POTASSIUM 50 MG TABLET PO SCH (08:21)
[2022-08-19] MEDS ORDERED: LORA-259 PO (08:21)
[2022-08-19] MEDS: APIXABAN 5 MG TABLET PO SCH (08:24)
[2022-08-19] MEDS: CLOBETASOL 0.05% CREAM 15 GM TUBE TP SCH (08:56)
--- NOTE | 2022-08-19 13:17 | NUR ---
pt's daughter is asking for soft wrist restraints to take home and use for her mom to prevent her from scratching her face. She is educated and explained that she can not use restraints at home due to safety issue. Explained multiple times that restraint pt needs to be monitored by nurse for safety and she can not take them home. Pt's daughter encouraged to cut moms nails short and use soft regular mittens. She is upset and loud stating we are not doing good job and mom has this wound on her face. Emotional support provided, however she ask me to leave her room.
[2022-08-19] MEDS: LEVOFLOXACIN (250MG) 250 MG TABLET PO SCH (13:51)
[2022-08-19] MEDS ORDERED: NEOMY SULF/BACITRAC ZN/POLY 15 GM TUBE TP SCH (14:00)
--- NOTE | 2022-08-19 14:30 | NUR ---
RN MS DISCHARGE NOTES PATIENT WAS SEEN BY DR RICKETTS AND WITH ORDER FOR DISCHARGE TO HOME , ALL DUE MEDS WAS GIVEN , IV ATB DUE WAS GIVEN ORDERED , DISCHARGE PAPERS WAS PREPARED AND DAUGHTER AT BEDSIDE AWARE ABOUT THE DISCHARGE PLAN AND WILL PROVIDE TRANSPORTATION TO THE PATIENT , DISCHARGE INSTRUCTIONS PROVIDED TO THE DAUGHTER REGARDING PO ANTIBIOTIC TO CONTINUE AT HOME AND OTHER NEW MEDS ORDERED BY MD , SAFETY PRECAUTIONS , FOLLOW UP WITH PCP , AND TO MONITOR FOR ANY CHANGE OF CONDITION AND WHEN TO CALL 911 . DAUGHTER WILL PROVIDE TRANSPORTATION , WAS SEEN BY SR. MEDIA MANAGER FOR WOUND AND RECOMMENDED TO APPLY TRIPLE ATB ON THE LEFT FACE CELLULITIS AND AND COVER WITH NON ADHESIVE DRESSING . DISCHARGE INSTRUCTION UNDERSTOOD BY THE DAUGHTER , ASSISTED VIA WHEEL CHAIR AND PATIENT LEFT WITH NO SOB AND NO DISTRESS NOTED
== END 2022-08-19 14:25 | disposition home or self-care (01) | DRG 865 ==
LOC: ER 16:02 → TRANSITION 23:34 → MED 08-16 08:35
PROVIDERS: ADMIT Nurse Practitioner Family; ATTEND Internal Medicine
PROC: 05HA33Z Insertion of Infusion Device into Left Brachial Vein, Percutaneous Approach (ICD-10-PCS; principal; 2022-08-15)
PROC: 05HC33Z Insertion of Infusion Device into Left Basilic Vein, Percutaneous Approach (ICD-10-PCS; 2022-08-17)
PROC: 05HB33Z Insertion of Infusion Device into Right Basilic Vein, Percutaneous Approach (ICD-10-PCS; 2022-08-19)
DX: B02.8 Zoster with other complications (principal); N17.0 Acute kidney failure with tubular necrosis; L03.211 Cellulitis of face; E87.1 Hypo-osmolality and hyponatremia; L12.0 Bullous pemphigoid; F03.90 Unspecified dementia, unspecified severity, without behavioral disturbance, psychotic disturbance, mood disturbance, and anxiety; Z85.72 Personal history of non-Hodgkin lymphomas; Z20.822 Contact with and (suspected) exposure to COVID-19; I10 Essential (primary) hypertension; Z90.710 Acquired absence of both cervix and uterus; Z90.49 Acquired absence of other specified parts of digestive tract; Z79.84 Long term (current) use of oral hypoglycemic drugs; Z79.899 Other long term (current) drug therapy; Z79.4 Long term (current) use of insulin; Z79.01 Long term (current) use of anticoagulants; E86.1 Hypovolemia; E11.65 Type 2 diabetes mellitus with hyperglycemia; Z88.1 Allergy status to other antibiotic agents; Z91.041 Radiographic dye allergy status
CPT/HCPCS: 36415; 70486-TC; 80048-TC; 80061-TC; 82947-TC; 82962-TC; 83735-TC; 85025-TC; 85652-TC; 86140-TC; 87081-TC; A4216; C9803; G0378; J0133; J1815; J1956; J2060; J2270; J3370; J3490; J7030; J7060